=== PATIENT | female | born 1990 | race Caucasian/White ===

== ENCOUNTER → 2019-02-27 10:04 | Outpatient (CLI) | payer OTHER, SELFPAY ==
--- NOTE | 2019-02-27 | DI.US.S_ITS ---
PROCEDURE: US OB <= 14 WEEKS FETUS INDICATIONS: SIZE AND DATES OUTSIDE/PRIOR DATING DATA: Last menstrual period (LMP): 01/05/2019. LMP-based estimated date of delivery ([place]): 10/12/2019. First dating scan (date and location): 02/27/2019 at . Estimated date of delivery ([place]) from first dating scan: 10/21/2019. TECHNIQUE: Real-time scanning was performed of the fetus and maternal pelvic organs, with image documentation. COMPARISON: None. FINDINGS: Embryo: There is a single living IUP with the estimated gestational age of 6 weeks 2 days based on the crown-rump length. cardiac activity is present with heart rate 104 bpm. No perigestational bleed. Measurement variability in dating: +/- 4 weeks by LMP, +/- 7 days by mean sac diameter (use before 6 weeks gestation if crown-rump length not able to be measured), +/- 5 days by crown-rump length (up to 8 weeks 6 days gestation), +/- 7 days by crown-rump length (up to 13 weeks 6 days gestation). Maternal organs: Ovaries not visualized. Limited images through the kidneys demonstrate no hydronephrosis. IMPRESSION: 1. A single living intrauterine gestation with an estimated gestational age of 6 weeks 2 days corresponding to ultrasound ALY 10/21/2019. Dictated by: Lucia Adler M.D. on 02/27/2019 at 13:54 Approved by: Lucia Adler M.D. on 02/27/2019 at 13:58
== END ==
PROVIDERS: PCP Family Medicine; Visit Provider Family Medicine
DX: Z34.91 Encounter for supervision of normal pregnancy, unspecified, first trimester (principal); Z3A.01 Less than 8 weeks gestation of pregnancy
CPT/HCPCS: 76801

== ENCOUNTER 2019-03-09 15:06 | Emergency (ER) | payer OTHER, SELFPAY ==
[2019-03-09 15:22] VITALS: BP 124/90; PULSE 122; RESP 16; TEMP 37.4; O2SAT 99
--- NOTE | 2019-03-09 16:13 | DI.US.S_ITS ---
PROCEDURE: US OB <= 14 WEEKS FETUS INDICATIONS: BLEEDING, PAIN, AT 7 WKS OUTSIDE/PRIOR DATING DATA: Last menstrual period (LMP): 01/07/19. LMP-based estimated date of delivery ([place]): 10/12/19. First dating scan (date and location): 02/27/19. Estimated date of delivery ([place]) from first dating scan: 10/21/19. TECHNIQUE: Real-time scanning was performed of the fetus and maternal pelvic organs, with image documentation. Endovaginal scanning was also performed to better visualize the fetus and maternal ovaries. COMPARISON: [facility], , OB <= 14 WEEKS FETUS, 02/27/2019, 10:22. FINDINGS: Embryo: A single intrauterine gestation is identified measuring approximately 6 weeks and 4 days based off crown-rump length of approximately 7 mm. Previous imaging dated 02/27/19 demonstrated a single intrauterine gestation measuring approximately 6 weeks and 2 days at that time with a visible heartbeat. On today's evaluation, no visible heart tones or cardiac activity identified. Maternal organs: Ovaries are not well-visualized. Limited images through the kidneys demonstrate no hydronephrosis. IMPRESSION: Intrauterine demise with retained products of conception. Findings discussed with Dr. Hudson of the emergency department staff at 1740 hrs. Dictated by: Giovanny Irving M.D. on 03/09/2019 at 17:32 Approved by: Giovanny Irving M.D. on 03/09/2019 at 17:43
--- NOTE | 2019-03-09 17:26 | PC.NURSE ---
8 weeks , onset of vaginal bleeding last night , changed pad twice. denies any discomfort. denies other sxs.
[2019-03-09 17:27] VITALS: BP 111/72; PULSE 81; RESP 16; O2SAT 98
--- NOTE | 2019-03-09 17:27 | PC.NURSE ---
spouse at bs. pt bernarda.
--- NOTE | 2019-03-09 18:58 | ED.PREGNANCY ---
HPI - General Chief complaint: OB/Uterine Contractions Stated complaint: AND BLEEDING Time Seen by Provider: 03/09/19 16:13 Source: patient and family Mode of arrival: ambulatory Limitations: no limitations History of Present Illness HPI Narrative: 28-year-old female at 7 weeks presents at the request of her primary care provider for evaluation of pelvic cramping and bleeding for the past day or 2. She had a normal ultrasound about 10 days ago which showed intrauterine at 6 weeks and 2 days. She had a significant amount of blood work drawn this morning it was sent for lab for stat interpretation. She has bleeding barely more than a. But some pelvic cramping. She is not dizzy nor weak or lightheaded. She denies any chest pain or shortness of breath. MD Complaint: vaginal bleeding Onset (ago): day(s) Pain Consistency: intermittent Location: abdomen Severity: mild Quality: Aching Radiation: pelvis Relieving factors: rest Exacerbating factors: movement Associated symptoms: denies other symptoms Vaginal bleeding: light Patient : Yes OB History - Current : no complications OB History - Previous Pregnancies: no complications care: followed by OB and previous ultrasound confirms IUP Related Data Home Medications Medication Instructions Recorded Confirmed PNV,calcium 76-kpeo-fnqle acid 1 tab PO DAILY 03/09/19 03/09/19 [ Vitamin Plus Low Iron] levothyroxine 75 mcg PO DAILY 03/09/19 Allergies Allergy/AdvReac Type Severity Reaction Status Date / Time No Known Drug Allergies Allergy Verified 03/09/19 15:26 Review of Systems Constitutional Denies chills, Denies fever(s), Denies lethargy and Denies weakness Eyes Denies change in vision, Denies eye discharge, Denies irritation and Denies loss of vision ENT Ears, Nose, Mouth, and Throat: Denies change in voice, Denies neck pain and Denies sore throat Cardiovascular Denies chest pain, Denies irregular heart rhythm, Denies lightheadedness, Denies palpitations, Denies dyspnea, Denies dyspnea on exertion and Denies orthopnea Respiratory Denies cough, Denies dyspnea, Denies dyspnea on exertion and Denies wheezing Gastrointestinal Gastrointestinal: Denies abdominal pain, Denies change in bowel habits, Denies diarrhea, Denies nausea and Denies vomiting Genitourinary Reports abnormal vaginal bleeding, Denies hematuria, Denies flank pain, Denies urinary incontinence and Denies urinary urgency Musculoskeletal Denies neck pain Integumentary/Breasts Denies pruritus, Denies erythema, Denies rash and Denies wounds Neurologic Denies confusion, Denies loss of vision and Denies weakness Psychiatric Denies anxiety, Denies confusion, Denies depression, Denies homicidal ideation and Denies suicidal ideation Endocrine Denies palpitations Hematologic/Lymphatic Denies easy bruising Allergic/Immunologic Denies wheezing PMFSH - Past Medical History Medical history: Reports no medical history Surgical history: Reports non-contributory 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 Normocephalic. EYES: Pupils equal round and reactive. Extraocular motions intact. ENT: Nose without bleeding, purulent drainage or septal hematoma. NECK: Trachea midline. No JVD or lymphadenopathy. Supple, nontender, no meningeal signs. CARDIOVASCULAR: Regular rate and rhythm without murmurs, gallops, or rubs. RESPIRATORY: Clear to auscultation. Breath sounds equal bilaterally. No wheezes, rales, or rhonchi. GASTROINTESTINAL: Abdomen soft, mild tenderness, nondistended. No hepato-splenomegaly, or palpable masses. No guarding. EXTREMITIES: No clubbing, cyanosis, or edema. No joint tenderness, effusion, or edema noted. BACK: Nontender without deformity or crepitance. No flank tenderness. NEURO: AOx3. SKIN: No rash or erythema. Initial Vital Signs Initial Vital Signs: Vital Signs Temperature 99.3 F 03/09/19 15:22 Pulse Rate 122 H 03/09/19 15:22 Respiratory Rate 16 03/09/19 15:22 Blood Pressure 124/90 03/09/19 15:22 Pulse Oximetry 99 03/09/19 15:22 Course Orders Ordered: ED Orders 03/09/19 16:13 US OB <= 14 weeks fetus Stat Vital Signs - 8 hr 03/09/19 15:22 03/09/19 17:27 Temperature 99.3 F Pulse Rate 122 H 81 Respiratory Rate 16 16 Blood Pressure 124/90 Blood Pressure [Left Arm] 111/72 Pulse Oximetry 99 98 MDM - OB/Uterine Contractions Imaging Data US - abdomen: Radiologist's impression: Chart Viewer Diagnostics DATE TYPE STATUS AUTHOR Cesar 03/09/19 16:13 Giovanny Irving 02/27/19 00:00 German Adler Susan Prescott 28, 1990 DEP ER, ED.LOC - Main ED: R06 53.07kg OB/Uterine Contractions Search Chart No Data to Display ONSET Today 18:18 Liz Godoy 28 F 1990 [place] [address] Ultrasound Report Signed Patient: Liz GodoyMR#: [id number] : 1990Acct:[id number] Age/Sex: 28 / FDate of Service: 03/09/19 Loc: ED Accession Number: [id number] Procedure: US OB <= 14 weeks fetus Ordering Provider: Crescencio Hudson D.O. PROCEDURE: OB <= 14 WEEKS FETUS INDICATIONS: BLEEDING, PAIN, AT 7 WKS OUTSIDE/PRIOR DATING DATA: Last menstrual period (LMP): 01/07/19. LMP-based estimated date of delivery ([place]): 10/12/19. First dating scan (date and location): 02/27/19. Estimated date of delivery ([place]) from first dating scan: 10/21/19. TECHNIQUE: Real-time scanning was performed of the fetus and maternal pelvic organs, with image documentation. Endovaginal scanning was also performed to better visualize the fetus and maternal ovaries. COMPARISON: [facility], OB <= 14 WEEKS FETUS, 02/27/2019, 10:22. FINDINGS: Embryo: A single intrauterine gestation is identified measuring approximately 6 weeks and 4 days based off crown-rump length of approximately 7 mm. Previous imaging dated 02/27/19 demonstrated a single intrauterine gestation measuring approximately 6 weeks and 2 days at that time with a visible heartbeat. On today's evaluation, no visible heart tones or cardiac activity identified. Maternal organs: Ovaries are not well-visualized. Limited images through the kidneys demonstrate no hydronephrosis. IMPRESSION: Intrauterine demise with retained products of conception. Findings discussed with Dr. Hudson of the emergency department staff at 1740 hrs. Dictated by: Giovanny Irving M.D. on 03/09/2019 at 17:32 Approved by: Giovanny Irving M.D. on 03/09/2019 at 17:43 Discharge Plan Departure Patient Disposition: Home Clinical Impression: Threatened miscarriage Discharge Date/Time: 03/09/19 18:20 Interventions: ED Discharge Assessment Last Done: 03/09/19 18:18 Instructions: DI for Threatened Activity Restrictions/Additional Instructions: *You have been diagnosed with [threatened miscarriage] *What to do: *Follow up with your primary care provider tomorrow as planned *Return to ER if you should have any new, worsening or concerning symptoms Prescriptions: No Action levothyroxine 75 mcg tablet 75 mcg PO DAILY RF: 0 Vitamin Plus Low Iron 27 mg iron- 1 mg tablet 1 tab PO DAILY RF: 0 Referrals: Staci Rodriguez MD [Primary Care Provider] -
--- NOTE | 2019-03-09 19:06 | ED_ITS ---
HPI - General Chief complaint: OB/Uterine Contractions Stated complaint: AND BLEEDING Time Seen by Provider: 03/09/19 16:13 Source: patient and family Mode of arrival: ambulatory Limitations: no limitations History of Present Illness HPI Narrative: 28-year-old female at 7 weeks presents at the request of her primary care provider for evaluation of pelvic cramping and bleeding for the past day or 2. She had a normal ultrasound about 10 days ago which showed intrauterine at 6 weeks and 2 days. She had a significant amount of blood work drawn this morning it was sent for lab for stat interpretation. She has bleeding barely more than a. But some pelvic cramping. She is not dizzy nor weak or lightheaded. She denies any chest pain or shortness of breath. MD Complaint: vaginal bleeding Onset (ago): day(s) Pain Consistency: intermittent Location: abdomen Severity: mild Quality: Aching Radiation: pelvis Relieving factors: rest Exacerbating factors: movement Associated symptoms: denies other symptoms Vaginal bleeding: light Patient : Yes OB History - Current : no complications OB History - Previous Pregnancies: no complications care: followed by OB and previous ultrasound confirms IUP Related Data Home Medications Medication Instructions Recorded Confirmed PNV,calcium 00-lpbh-apiym acid 1 tab PO DAILY 03/09/19 03/09/19 [ Vitamin Plus Low Iron] levothyroxine 75 mcg PO DAILY 03/09/19 Allergies Allergy/AdvReac Type Severity Reaction Status Date / Time No Known Drug Allergies Allergy Verified 03/09/19 15:26 Review of Systems Constitutional Denies chills, Denies fever(s), Denies lethargy and Denies weakness Eyes Denies change in vision, Denies eye discharge, Denies irritation and Denies loss of vision ENT Ears, Nose, Mouth, and Throat: Denies change in voice, Denies neck pain and Denies sore throat Cardiovascular Denies chest pain, Denies irregular heart rhythm, Denies lightheadedness, Denies palpitations, Denies dyspnea, Denies dyspnea on exertion and Denies orthopnea Respiratory Denies cough, Denies dyspnea, Denies dyspnea on exertion and Denies wheezing Gastrointestinal Gastrointestinal: Denies abdominal pain, Denies change in bowel habits, Denies diarrhea, Denies nausea and Denies vomiting Genitourinary Reports abnormal vaginal bleeding, Denies hematuria, Denies flank pain, Denies urinary incontinence and Denies urinary urgency Musculoskeletal Denies neck pain Integumentary/Breasts Denies pruritus, Denies erythema, Denies rash and Denies wounds Neurologic Denies confusion, Denies loss of vision and Denies weakness Psychiatric Denies anxiety, Denies confusion, Denies depression, Denies homicidal ideation and Denies suicidal ideation Endocrine Denies palpitations Hematologic/Lymphatic Denies easy bruising Allergic/Immunologic Denies wheezing PMFSH - Past Medical History Medical history: Reports no medical history Surgical history: Reports non-contributory 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 Normocephalic. EYES: Pupils equal round and reactive. Extraocular motions intact. ENT: Nose without bleeding, purulent drainage or septal hematoma. NECK: Trachea midline. No JVD or lymphadenopathy. Supple, nontender, no meningeal signs. CARDIOVASCULAR: Regular rate and rhythm without murmurs, gallops, or rubs. RESPIRATORY: Clear to auscultation. Breath sounds equal bilaterally. No wheezes, rales, or rhonchi. GASTROINTESTINAL: Abdomen soft, mild tenderness, nondistended. No hepato- splenomegaly, or palpable masses. No guarding. EXTREMITIES: No clubbing, cyanosis, or edema. No joint tenderness, effusion, or edema noted. BACK: Nontender without deformity or crepitance. No flank tenderness. NEURO: AOx3. SKIN: No rash or erythema. Initial Vital Signs Initial Vital Signs: Vital Signs Temperature 99.3 F 03/09/19 15:22 Pulse Rate 122 H 03/09/19 15:22 Respiratory Rate 16 03/09/19 15:22 Blood Pressure 124/90 03/09/19 15:22 Pulse Oximetry 99 03/09/19 15:22 Course Orders Ordered: ED Orders 03/09/19 16:13 US OB <= 14 weeks fetus Stat Vital Signs - 8 hr 03/09/19 15:22 03/09/19 17:27 Temperature 99.3 F Pulse Rate 122 H 81 Respiratory Rate 16 16 Blood Pressure 124/90 Blood Pressure [Left Arm] 111/72 Pulse Oximetry 99 98 MDM - OB/Uterine Contractions Imaging Data US - abdomen: Radiologist's impression: Chart Viewer Diagnostics DATE TYPE STATUS AUTHOR Cesar 03/09/19 16:13 Giovanny Irving 02/27/19 00:00 German Adler Susan Prescott 30, 1990 DEP ER, ED.LOC - Main ED: R06 53.07kg OB/Uterine Contractions Search Chart No Data to Display ONSET Today 18:18 Liz Godoy 28 F 1990 [place] [address] Ultrasound Report Signed Patient: Liz GodoyMR#: [id number] : 1990Acct:[id number] Age/Sex: 28 / FDate of Service: 03/09/19 Loc: ED Accession Number: [id number] Procedure: US OB <= 14 weeks fetus Ordering Provider: Crescencio Hudson D.O. PROCEDURE: OB <= 14 WEEKS FETUS INDICATIONS: BLEEDING, PAIN, AT 7 WKS OUTSIDE/PRIOR DATING DATA: Last menstrual period (LMP): 01/07/19. LMP-based estimated date of delivery ([place]): 10/12/19. First dating scan (date and location): 02/27/19. Estimated date of delivery ([place]) from first dating scan: 10/21/19. TECHNIQUE: Real-time scanning was performed of the fetus and maternal pelvic organs, with image documentation. Endovaginal scanning was also performed to better visualize the fetus and maternal ovaries. COMPARISON: [facility], OB <= 14 WEEKS FETUS, 02/27/2019, 10:22. FINDINGS: Embryo: A single intrauterine gestation is identified measuring approximately 6 weeks and 4 days based off crown-rump length of approximately 7 mm. Previous imaging dated 02/27/19 demonstrated a single intrauterine gestation measuring approximately 6 weeks and 2 days at that time with a visible heartbeat. On today's evaluation, no visible heart tones or cardiac activity identified. Maternal organs: Ovaries are not well-visualized. Limited images through the kidneys demonstrate no hydronephrosis. IMPRESSION: Intrauterine demise with retained products of conception. Findings discussed with Dr. Hudson of the emergency department staff at 1740 hrs. Dictated by: Giovanny Irving M.D. on 03/09/2019 at 17:32 Approved by: Giovanny Irving M.D. on 03/09/2019 at 17:43 Discharge Plan Departure Patient Disposition: Home Clinical Impression: Threatened miscarriage Discharge Date/Time: 03/09/19 18:20 Interventions: ED Discharge Assessment Last Done: 03/09/19 18:18 Instructions: DI for Threatened Activity Restrictions/Additional Instructions: *You have been diagnosed with [threatened miscarriage] *What to do: *Follow up with your primary care provider tomorrow as planned *Return to ER if you should have any new, worsening or concerning symptoms Prescriptions: No Action levothyroxine 75 mcg tablet 75 mcg PO DAILY RF: 0 Vitamin Plus Low Iron 27 mg iron- 1 mg tablet 1 tab PO DAILY RF: 0 Referrals: Staci Rodriguez MD [Primary Care Provider] -
== END 2019-03-09 18:20 | disposition home or self-care (01) ==
PROVIDERS: Emergency Provider Emergency Medicine; PCP Family Medicine
DX: O20.0 Threatened abortion (principal); Z3A.01 Less than 8 weeks gestation of pregnancy; R35.0 Frequency of micturition
CPT/HCPCS: 76801; 76817; 84702; 99282; 99283

== ENCOUNTER → 2019-03-09 15:13 | Outpatient (ROUT) | payer OTHER, SELFPAY ==
[2019-03-09 16:05] LABS: HCG Quantitative /Beta subunit 17322 mIU/mL
== END ==
PROVIDERS: PCP Family Medicine; Visit Provider Family Medicine
DX: Z34.00 Encounter for supervision of normal first pregnancy, unspecified trimester (principal); Z32.01 Encounter for pregnancy test, result positive; R35.0 Frequency of micturition
CPT/HCPCS: 84702

== ENCOUNTER → 2019-03-10 11:39 | Outpatient (CLI) | payer OTHER, SELFPAY | PROVIDERS: PCP Family Medicine; Visit Provider Family Medicine | DX: O46.91 Antepartum hemorrhage, unspecified, first trimester (principal) | CPT/HCPCS: 36415; 86850; 86900; 86901 ==

== ENCOUNTER → 2019-03-11 12:26 | Outpatient (CLI) | payer OTHER, SELFPAY ==
[2019-03-11 12:55] LABS: Add Manual Diff / Slide Review NO; Basophils Absolute Auto 0 /uL (0-100); Basophils Percent Auto 1.1 % (0-2); Eosinophils Absolute Auto 100 /uL (0-450); Eosinophils Percent Auto 1.2 % (2-4); Hematocrit 38.7 % (36-46); Hemoglobin 12.9 g/dL (12.0-16.0); Lymphocytes Absolute Auto 800 /uL (1100-4500); Lymphocytes Percent Auto 16.8 % (25-40); Mean Corpuscular HGB Conc 33.4 % (30-36); Mean Corpuscular Hemoglobin 30.3 PG (26-34); Mean Corpuscular Volume 90.5 fL (80-100); Monocytes Absolute Auto 300 /uL (0-900); Monocytes Percent Auto 7.2 % (3-14); Neutrophils Absolute Auto 3300 /uL (1500-7000); Neutrophils Percent Auto 73.7 % (50-75); Platelet Count 224 X10^3/uL (150-400); Red Blood Cell Count 4.27 X10^6/uL (4.0-5.2); Red Cell Distribution Width 12.8 % (11.6-14.8); White Blood Cell Count 4.5 X10^3/uL (4.5-11.0)
[2019-03-11 13:46] LABS: HCG Quantitative /Beta subunit 15220 mIU/mL
== END ==
PROVIDERS: PCP Family Medicine; Visit Provider Family Medicine
DX: O46.91 Antepartum hemorrhage, unspecified, first trimester (principal)
CPT/HCPCS: 36415; 84702; 85025

== ENCOUNTER 2019-03-15 03:13 | Observation (INO) | payer OTHER, SELFPAY ==
[2019-03-15] VITALS (16 sets, daily range): BP systolic 94–140; BP diastolic 60–92; PULSE 70–120; RESP 16–20; TEMP 36.5–37.7; O2SAT 98–100; BMI 20.1
--- NOTE | 2019-03-15 | PATH_ITS ---
[facility] Accession Number: [id number] . 01 Material submitted: . product of conception - PRODUCTS OF CONCEPTION . 02 Diagnosis: Designated Products of Conception, Removal: Fragments of blood and fibrin. No tissue identified. V/03/18/2019 . 02 Electronically signed: . Concepcion Berg MD, Pathologist NPI- [id number] . 01 Gross description: . Received fresh labeled with the patient's name and designated on the requisition as products of conception are two pieces of red-brown clotted blood, measuring 2.4 x 1.1 x 0.8 cm and 4.3 x 4.2 x 1.2 cm. No placental tissue or parts are identified. Fire Investigation Lieutenant sections are submitted in three cassettes. ([id number]) /[facility] . 02 Pathologist provided ICD-10: O02.1 . 02 CPT . 894111 Performed at: 01 [facility] [address] [facility], [place], [place] [id number] MD Colin Berry MD Phone: [phone] Performed at: 02 [facility] [address] [place], [place] [id number] MD Concepcion Berg MD Phone: [phone]
--- NOTE | 2019-03-15 03:17 | DI.US.S_ITS ---
PROCEDURE: US OB <= 14 WEEKS FETUS INDICATIONS: KNOWN DEMISE; BLEEDING OUTSIDE/PRIOR DATING DATA: Last menstrual period (LMP): 01/05/2019. LMP-based estimated date of delivery ([place]): 10/12/2019. First dating scan (date and location): 02/27/2019 at . Estimated date of delivery ([place]) from first dating scan: 10/21/2019. TECHNIQUE: Real-time scanning was performed of the fetus and maternal pelvic organs, with image documentation. Endovaginal scanning was also performed to better visualize the fetus and maternal ovaries. COMPARISON: [facility], OB <= 14 WEEKS FETUS, 02/27/2019, 10:22. [facility], OB <= 14 WEEKS FETUS, 03/09/2019, 17:00. FINDINGS: Embryo: There is a gestational sac seen, which is now located within the lower uterine segment. A pole is seen, with a crown-rump length of 6 mm, corresponding to an estimated gestational age of 6 weeks 3 days. No cardiac activity can be seen. Measurement variability in dating: +/- 4 weeks by LMP, +/- 7 days by mean sac diameter (use before 6 weeks gestation if crown-rump length not able to be measured), +/- 5 days by crown-rump length (up to 8 weeks 6 days gestation), +/- 7 days by crown-rump length (up to 13 weeks 6 days gestation). Maternal organs: No significant abnormality is seen. IMPRESSION: demise, with spontaneous miscarriage in process. Note: No significant discrepancy from the preliminary report. Dictated by: Rosas Carrasco M.D. on 03/15/2019 at 7:11 Approved by: Rosas Carrasco M.D. on 03/15/2019 at 7:13
--- NOTE | 2019-03-15 03:30 | PC.NURSE ---
Patient with recent diagnosis last week of threatened miscarriage. Presents this evening with painful cramping and heavier bleeding than in previous days.
[2019-03-15 03:34] LABS: Add Manual Diff / Slide Review NO; Basophils Absolute Auto 0 /uL (0-100); Basophils Percent Auto 0.6 % (0-2); Eosinophils Absolute Auto 100 /uL (0-450); Eosinophils Percent Auto 1.3 % (2-4); Hematocrit 39.7 % (36-46); Lymphocytes Absolute Auto 1000 /uL (1100-4500); Lymphocytes Percent Auto 12.4 % (25-40); Mean Corpuscular HGB Conc 32.8 % (30-36); Mean Corpuscular Hemoglobin 29.8 PG (26-34); Mean Corpuscular Volume 90.7 fL (80-100); Monocytes Absolute Auto 500 /uL (0-900); Neutrophils Absolute Auto 6500 /uL (1500-7000); Neutrophils Percent Auto 79.7 % (50-75); Platelet Count 225 X10^3/uL (150-400); Red Blood Cell Count 4.37 X10^6/uL (4.0-5.2); Red Cell Distribution Width 12.8 % (11.6-14.8); White Blood Cell Count 8.1 X10^3/uL (4.5-11.0)
--- NOTE | 2019-03-15 03:34 | ED.PREGNANCY ---
HPI - General Chief complaint: Urogenital-Female Stated complaint: Possible miscarriage Time Seen by Provider: 03/15/19 03:14 Source: patient and family Mode of arrival: ambulatory Limitations: no limitations History of Present Illness HPI Narrative: 28-year-old female nonsmoker as a at 7 and half weeks with a known intrauterine demise. She was seen by myself few days ago with some cramping and spotting and ultrasound demonstrated intrauterine demise. She was seen by her primary care provider then following day and they elected to wait the weekend and have a repeat ultrasound on Saturday to decide whether not D&C was indicated. This evening at about 10:00 p.m. the patient's cramping increase significantly as did her bleeding. She has passed multiple clots at home and for the majority of time was not using a pad as she was just sitting on the toilet. She does think that she had passed some tissue. She is not dizzy nor weak or lightheaded. She completely saturated a pad in the 20 minutes it took her to get here. Her last food and drink was at about 6:00 p.m. last night MD Complaint: abdominal pain, vaginal bleeding and contractions Onset (ago): hour(s) Pain Consistency: constant Location: pelvis Severity: moderate Quality: Aching Radiation: pelvis Relieving factors: none Exacerbating factors: none Vaginal bleeding: heavy and clots OB History - Current : other care: followed by OB and previous ultrasound confirms IUP Related Data Home Medications Medication Instructions Recorded Confirmed PNV,calcium 96-vdnd-fhlud acid 1 tab PO DAILY 03/09/19 03/09/19 [ Vitamin Plus Low Iron] levothyroxine 75 mcg PO DAILY 03/09/19 Allergies Allergy/AdvReac Type Severity Reaction Status Date / Time No Known Drug Allergies Allergy Verified 03/15/19 03:41 Review of Systems Constitutional Denies chills, Denies fever(s), Denies lethargy and Denies weakness Eyes Denies change in vision, Denies eye discharge, Denies irritation and Denies loss of vision ENT Ears, Nose, Mouth, and Throat: Denies change in voice, Denies neck pain and Denies sore throat Cardiovascular Denies chest pain, Denies irregular heart rhythm, Denies lightheadedness, Denies palpitations, Denies dyspnea, Denies dyspnea on exertion and Denies orthopnea Respiratory Denies cough, Denies dyspnea, Denies dyspnea on exertion and Denies wheezing Gastrointestinal Gastrointestinal: Denies abdominal pain, Denies change in bowel habits, Denies diarrhea, Denies nausea and Denies vomiting Genitourinary Reports abnormal vaginal bleeding, Denies hematuria, Denies flank pain, Denies urinary incontinence and Denies urinary urgency Musculoskeletal Denies neck pain Integumentary/Breasts Denies pruritus, Denies erythema, Denies rash and Denies wounds Neurologic Denies confusion, Denies loss of vision and Denies weakness Psychiatric Denies anxiety, Denies confusion, Denies depression, Denies homicidal ideation and Denies suicidal ideation Endocrine Denies palpitations Hematologic/Lymphatic Denies easy bruising Allergic/Immunologic Denies wheezing PMFSH - Past Medical History Medical history: Reports thyroid disease Surgical history: Reports non-contributory Psychiatric history: Reports no psych history Family history: Reports no significant family history Exam Narrative Exam Narrative: GENERAL: 28-year-old female appears stated age, bit anxious and visibly upset well-developed patient, in mild distress. HEAD: Atraumatic. Normocephalic. No temporal or scalp tenderness. EYES: Pupils equal round and reactive. Extraocular motions intact. No scleral icterus. No injection or drainage. ENT: Throat without erythema, tonsillar hypertrophy or exudate. Uvula midline. Airway patent. NECK: Trachea midline. No JVD or lymphadenopathy. CARDIOVASCULAR: Regular rate and rhythm without murmurs, gallops, or rubs. RESPIRATORY: Clear to auscultation. Breath sounds equal bilaterally. No wheezes, rales, or rhonchi. GASTROINTESTINAL: Abdomen soft, non-tender, nondistended. PELVIC: fresh blood visible externally. Large amount of bright red blood with clot and possibly tissue in vaginal canal. Non pulsatile. 8 granados swabs used. Large clot with possible tissue very easily removed, no forceful tugging. No pain reported. Sent to pathology. Moderate continued dark bleeding via closed os. EXTREMITIES: No clubbing, cyanosis, or edema. No joint tenderness, effusion, or edema noted. BACK: Nontender without deformity or crepitance. No flank tenderness. NEURO: AOx3. SKIN: No rash or erythema. Initial Vital Signs Initial Vital Signs: Vital Signs Temperature 99.3 F 03/15/19 03:14 Pulse Rate 95 H 03/15/19 03:14 Respiratory Rate 20 03/15/19 03:14 Blood Pressure 121/71 03/15/19 03:14 Pulse Oximetry 100 03/15/19 03:14 Course Orders Ordered: ED Orders 03/15/19 03:17 US OB <= 14 weeks fetus Stat 03/15/19 03:25 Basic Metabolic Panel Stat Complete Blood Count AUTO DIFF Stat HCG Quantitative Stat Type and Screen Stat Consultations Consultation #1: call to Dr. Carmichael, she suggests I call Dr. Scott (education reporter for Dr. Rodriguez) as she traditionally does not provide coverage for the group will admit to Dr. Scott and he will consult with Dr. Rodriguez shortly Vital Signs - 8 hr 03/15/19 03:14 03/15/19 04:17 Temperature 99.3 F Pulse Rate 95 H 95 H Respiratory Rate 20 16 Blood Pressure 121/71 Blood Pressure [Left Arm] 117/67 Pulse Oximetry 100 100 MDM - OB/Uterine Contractions Lab Data Result diagrams: 03/15/19 03:25 03/15/19 03:25 Lab Results 03/15/19 03/15/19 03/15/19 Range/Units 03:25 03:25 03:25 WBC 8.1 (4.5-11.0) X10^3/uL RBC 4.37 (4.0-5.2) X10^6/uL Hgb 13.0 (12.0-16.0) g/dL Hct 39.7 (36-46) % MCV 90.7 (80-100) fL MCH 29.8 (26-34) PG MCHC 32.8 (30-36) % RDW 12.8 (11.6-14.8) % Plt Count 225 (150-400) X10^3/uL Neut % (Auto) 79.7 H (50-75) % Lymph % (Auto) 12.4 L (25-40) % [place] % (Auto) 6.0 (3-14) % Eos % (Auto) 1.3 L (2-4) % Baso % (Auto) 0.6 (0-2) % Neut # (Auto) 6500 (0055-0756) /uL Lymph # (Auto) 1000 L (7274-9308) /uL [place] # (Auto) 500 (0-900) /uL Eos # (Auto) 100 (0-450) /uL Baso # (Auto) 0 (0-100) /uL Sodium 139 (137-145) mmol/L Potassium 3.9 (3.4-5.1) mmol/L Chloride 105 (98-107) mmol/L Carbon Dioxide 25 (22-32) mmol/L BUN 11 (7-17) mg/dL Creatinine 0.60 (0.52-1.04) mg/dL Estimated GFR > 60.0 (>60) mL/min BUN/Creatinine Ratio 18.3 (6-22) Glucose 110 H (70-100) mg/dL Calcium 9.4 (8.4-10.2) mg/dL HCG, Quant 91121 mIU/mL Blood Type A Positive Antibody Screen Negative MDM Narrative Medical decision making narrative: heavy bleeding, up to 1 pad per 20 minutes, cramping. H/H stable, hemodynamics stable. US notes retained products. Patient will need a D/C later today and she and understand and are in complete agreement with the plan Discharge Plan Departure Prescriptions: No Action levothyroxine 75 mcg tablet 75 mcg PO DAILY RF: 0 Vitamin Plus Low Iron 27 mg iron- 1 mg tablet 1 tab PO DAILY RF: 0
--- NOTE | 2019-03-15 03:37 | ED_ITS ---
HPI - General Chief complaint: Urogenital-Female Stated complaint: Possible miscarriage Time Seen by Provider: 03/15/19 03:14 Source: patient and family Mode of arrival: ambulatory Limitations: no limitations History of Present Illness HPI Narrative: 28-year-old female nonsmoker as a at 7 and half weeks with a known intrauterine demise. She was seen by myself few days ago with some cramping and spotting and ultrasound demonstrated intrauterine demise. She was seen by her primary care provider then following day and they elected to wait the weekend and have a repeat ultrasound on Saturday to decide whether not D&C was indicated. This evening at about 10:00 p.m. the patient's cramping increase significantly as did her bleeding. She has passed multiple clots at home and for the majority of time was not using a pad as she was just sitting on the toilet. She does think that she had passed some tissue. She is not dizzy nor weak or lightheaded. She completely saturated a pad in the 20 minutes it took her to get here. Her last food and drink was at about 6:00 p.m. last night MD Complaint: abdominal pain, vaginal bleeding and contractions Onset (ago): hour(s) Pain Consistency: constant Location: pelvis Severity: moderate Quality: Aching Radiation: pelvis Relieving factors: none Exacerbating factors: none Vaginal bleeding: heavy and clots OB History - Current : other care: followed by OB and previous ultrasound confirms IUP Related Data Home Medications Medication Instructions Recorded Confirmed PNV,calcium 82-kvxa-xwnhu acid 1 tab PO DAILY 03/09/19 03/09/19 [ Vitamin Plus Low Iron] levothyroxine 75 mcg PO DAILY 03/09/19 Allergies Allergy/AdvReac Type Severity Reaction Status Date / Time No Known Drug Allergies Allergy Verified 03/15/19 03:41 Review of Systems Constitutional Denies chills, Denies fever(s), Denies lethargy and Denies weakness Eyes Denies change in vision, Denies eye discharge, Denies irritation and Denies loss of vision ENT Ears, Nose, Mouth, and Throat: Denies change in voice, Denies neck pain and Denies sore throat Cardiovascular Denies chest pain, Denies irregular heart rhythm, Denies lightheadedness, Denies palpitations, Denies dyspnea, Denies dyspnea on exertion and Denies orthopnea Respiratory Denies cough, Denies dyspnea, Denies dyspnea on exertion and Denies wheezing Gastrointestinal Gastrointestinal: Denies abdominal pain, Denies change in bowel habits, Denies diarrhea, Denies nausea and Denies vomiting Genitourinary Reports abnormal vaginal bleeding, Denies hematuria, Denies flank pain, Denies urinary incontinence and Denies urinary urgency Musculoskeletal Denies neck pain Integumentary/Breasts Denies pruritus, Denies erythema, Denies rash and Denies wounds Neurologic Denies confusion, Denies loss of vision and Denies weakness Psychiatric Denies anxiety, Denies confusion, Denies depression, Denies homicidal ideation and Denies suicidal ideation Endocrine Denies palpitations Hematologic/Lymphatic Denies easy bruising Allergic/Immunologic Denies wheezing PMFSH - Past Medical History Medical history: Reports thyroid disease Surgical history: Reports non-contributory Psychiatric history: Reports no psych history Family history: Reports no significant family history Exam Narrative Exam Narrative: GENERAL: 28-year-old female appears stated age, bit anxious and visibly upset well-developed patient, in mild distress. HEAD: Atraumatic. Normocephalic. No temporal or scalp tenderness. EYES: Pupils equal round and reactive. Extraocular motions intact. No scleral icterus. No injection or drainage. ENT: Throat without erythema, tonsillar hypertrophy or exudate. Uvula midline. Airway patent. NECK: Trachea midline. No JVD or lymphadenopathy. CARDIOVASCULAR: Regular rate and rhythm without murmurs, gallops, or rubs. RESPIRATORY: Clear to auscultation. Breath sounds equal bilaterally. No wheezes, rales, or rhonchi. GASTROINTESTINAL: Abdomen soft, non-tender, nondistended. PELVIC: fresh blood visible externally. Large amount of bright red blood with clot and possibly tissue in vaginal canal. Non pulsatile. 8 granados swabs used. Large clot with possible tissue very easily removed, no forceful tugging. No pain reported. Sent to pathology. Moderate continued dark bleeding via closed os. EXTREMITIES: No clubbing, cyanosis, or edema. No joint tenderness, effusion, or edema noted. BACK: Nontender without deformity or crepitance. No flank tenderness. NEURO: AOx3. SKIN: No rash or erythema. Initial Vital Signs Initial Vital Signs: Vital Signs Temperature 99.3 F 03/15/19 03:14 Pulse Rate 95 H 03/15/19 03:14 Respiratory Rate 20 03/15/19 03:14 Blood Pressure 121/71 03/15/19 03:14 Pulse Oximetry 100 03/15/19 03:14 Course Orders Ordered: ED Orders 03/15/19 03:17 US OB <= 14 weeks fetus Stat 03/15/19 03:25 Basic Metabolic Panel Stat Complete Blood Count AUTO DIFF Stat HCG Quantitative Stat Type and Screen Stat Consultations Consultation #1: call to Dr. Carmichael, she suggests I call Dr. Scott (water filtration technician for Dr. Rodriguez) as she traditionally does not provide coverage for the group will admit to Dr. Scott and he will consult with Dr. Rodriguez shortly Vital Signs - 8 hr 03/15/19 03:14 03/15/19 04:17 Temperature 99.3 F Pulse Rate 95 H 95 H Respiratory Rate 20 16 Blood Pressure 121/71 Blood Pressure [Left Arm] 117/67 Pulse Oximetry 100 100 MDM - OB/Uterine Contractions Lab Data Result diagrams: 03/15/19 03:25 03/15/19 03:25 Lab Results 03/15/19 03/15/19 03/15/19 Range/Units 03:25 03:25 03:25 WBC 8.1 (4.5-11.0) X10^3/uL RBC 4.37 (4.0-5.2) X10^6/uL Hgb 13.0 (12.0-16.0) g/dL Hct 39.7 (36-46) % MCV 90.7 (80-100) fL MCH 29.8 (26-34) PG MCHC 32.8 (30-36) % RDW 12.8 (11.6-14.8) % Plt Count 225 (150-400) X10^3/uL Neut % (Auto) 79.7 H (50-75) % Lymph % (Auto) 12.4 L (25-40) % [place] % (Auto) 6.0 (3-14) % Eos % (Auto) 1.3 L (2-4) % Baso % (Auto) 0.6 (0-2) % Neut # (Auto) 6500 (7573-1518) /uL Lymph # (Auto) 1000 L (5070-6609) /uL [place] # (Auto) 500 (0-900) /uL Eos # (Auto) 100 (0-450) /uL Baso # (Auto) 0 (0-100) /uL Sodium 139 (137-145) mmol/L Potassium 3.9 (3.4-5.1) mmol/L Chloride 105 (98-107) mmol/L Carbon Dioxide 25 (22-32) mmol/L BUN 11 (7-17) mg/dL Creatinine 0.60 (0.52-1.04) mg/dL Estimated GFR > 60.0 (>60) mL/min BUN/Creatinine Ratio 18.3 (6-22) Glucose 110 H (70-100) mg/dL Calcium 9.4 (8.4-10.2) mg/dL HCG, Quant 30575 mIU/mL Blood Type A Positive Antibody Screen Negative MDM Narrative Medical decision making narrative: heavy bleeding, up to 1 pad per 20 minutes, cramping. H/H stable, hemodynamics stable. US notes retained products. Patient will need a D/C later today and she and understand and are in complete agreement with the plan Discharge Plan Departure Prescriptions: No Action levothyroxine 75 mcg tablet 75 mcg PO DAILY RF: 0 Vitamin Plus Low Iron 27 mg iron- 1 mg tablet 1 tab PO DAILY RF: 0
[2019-03-15 03:43] LABS: BUN Creatinine Ratio 18.3 (6-22); Blood Urea Nitrogen 11 mg/dL (7-17); Calcium 9.4 mg/dL (8.4-10.2); Carbon Dioxide 25 mmol/L (22-32); Chloride 105 mmol/L (98-107); Estimated Glomerular Filt Rate > 60.0 mL/min (>60); Glucose 110 mg/dL (70-100); HEMOLYSIS 20 (0-50); Potassium 3.9 mmol/L (3.4-5.1); Sodium 139 mmol/L (137-145)
[2019-03-15 04:00] LABS: HCG Quantitative /Beta subunit 10008 mIU/mL
--- NOTE | 2019-03-15 04:24 | PC.NURSE ---
assisted Dr. Hudson with pelvic exam to look for POC. Patient tolerated procedure well. Spouse and this specification writer present for exam. Specimen obtained for lab, U/S ordered.
[2019-03-15] MEDS: KETOROLAC 60 MG/2 ML VIAL 15 MG IV (04:42)
--- NOTE | 2019-03-15 06:01 | PC.NURSE ---
Patient transferred from center to room [address] Scott orders that was given to the center nurse Niraj RN. Patient arrived via wheelchair and self transfer to bed. In no acute distress.
[2019-03-15] MEDS: SODIUM CHLORIDE 0.9% 1,000 ML 125 ML IV (06:46)
[2019-03-15 07:33] LABS: Hematocrit 34.9 % (36-46)
--- NOTE | 2019-03-15 08:13 | PC.NURSE ---
Addendum entered by Swapna Hamilton R.N. 03/15/19 13:16: SURG - pacu arrived, pt up to br, voided, spouse at bedside and accompanying to surgery, valuables, jewelry given to spouse. Original Note: AM NOTE - alert, sitting upright bed, spouse at side, tearful when discussing events initially, scant drainage peripad now, occassional abd cramping discomfort, relieved by earlier toradol in ER, ra 98%, denies nausea, + bt, npo status verified and explained to pt.
--- NOTE | 2019-03-15 10:10 | PM.HP.1 ---
History of Present Illness Date Patient Seen: 03/15/19 Time Patient Seen: 09:16 Chief complaint: Possible miscarriage Narrative: Patient HPI narrative. A 28-year-old female healthy nonsmoker with the early at about 7 and half weeks with and known intrauterine demise over the last week or so some cramping. Last evening cramping and bleeding became much more dramatic with heavy clots and a dramatic increase in pain she felt like she might have passed some small amount of tissue but at 3:00 a.m. in the morning with ultrasound still had retained products that were not able to be removed by forceps in the ER. Continued to have cramping and pain bleeding has slowed down however after Toradol. Patient denies fever. No chills. Heavy vaginal bleeding with large clots possibility of a very small amount of tissue but again at 3 still retained products lots of cramping pain dramatically improved with the Toradol. Patient History Social History household members: spouse Smoking Status: Never smoker alcohol intake: former Family & Social History Social History: household members spouse Prior Living Arrangements House Safety & Behavioral: Feels Safe in Current Yes Environment Been Physically Hurt or No Threatened By a Person Tobacco & Substance use: Smoking Status Never smoker alcohol intake former alcohol intake frequency a few times a month Substance Use Type does not use Meds Home Medications Medication Instructions Recorded Confirmed Type PNV,calcium 80-djzv-bkvtp acid 1 tab PO DAILY 03/09/19 03/15/19 History [ Vitamin Plus Low Iron] levothyroxine 75 mcg PO DAILY 03/09/19 03/15/19 History cholecalciferol (vitamin D3) 1,000 unit PO DAILY 03/15/19 03/15/19 History [Vitamin D3] valacyclovir 500 mg PO DAILY 03/15/19 03/15/19 History Allergies Allergy/AdvReac Type Severity Reaction Status Date / Time No Known Drug Allergies Allergy Verified 03/15/19 03:41 Review of Systems Review of Systems Patient without headache or neurologic change Vision normal Respiratory function within normal limits without shortness of breath cough pain No chest pain palpitations dyspnea with exertion Abdominal discomfort low in the pelvic area ultrasound shows no abnormality other than retained products That confirmed demise with a retained intrauterine products on ultrasound Significant bleeding vaginally secondary to that No neurologic change headache vision change No significant dependent edema Exam Vital Signs (past 8 hours): - 03/15/19 03:14 03/15/19 04:17 03/15/19 06:00 Temperature 99.3 F 99.9 F H Pulse Rate 95 H 95 H 78 Respiratory Rate 20 16 18 Blood Pressure 121/71 117/72 Blood Pressure [Left Arm] 117/67 Pulse Oximetry 100 100 99 03/15/19 07:00 03/15/19 08:42 Temperature 98.6 F Pulse Rate 73 Respiratory Rate 17 Blood Pressure 108/70 Blood Pressure [Left Arm] Pulse Oximetry 98 98 Oxygen Delivery Method Room Air Oxygen Flow Rate 0 Narrative Exam Narrative: Patient little anxious flu anxious but fairly comfortable in bed alert non pale PERRLA EOMs intact Neck without nodes mass Cardiovascular shows regular rate and rhythm with good blood pressure no murmurs no edema Respiratory clear to auscultation equal breath sounds Abdomen soft nontender no hepatosplenomegaly Pelvic per ER shows fresh blood visible with clotting Extremities without edema or swelling Neuro alert orient x3 sensation and motor intact neck is No rash Objective Labs Result Diagrams: 03/15/19 07:10 03/15/19 03:25 Labs: Laboratory Results - last 24 hr 03/15/19 03/15/19 03/15/19 03:25 03:25 03:25 WBC 8.1 RBC 4.37 Hgb 13.0 Hct 39.7 MCV 90.7 MCH 29.8 MCHC 32.8 RDW 12.8 Plt Count 225 Neut % (Auto) 79.7 H Lymph % (Auto) 12.4 L [place] % (Auto) 6.0 Eos % (Auto) 1.3 L Baso % (Auto) 0.6 Neut # (Auto) 6500 Lymph # (Auto) 1000 L [place] # (Auto) 500 Eos # (Auto) 100 Baso # (Auto) 0 Sodium 139 Potassium 3.9 Chloride 105 Carbon Dioxide 25 BUN 11 Creatinine 0.60 Estimated GFR > 60.0 BUN/Creatinine Ratio 18.3 Glucose 110 H Calcium 9.4 HCG, Quant 99231 Blood Type A Positive Antibody Screen Negative 03/15/19 07:10 WBC RBC Hgb 12.0 Hct 34.9 L MCV MCH MCHC RDW Plt Count Neut % (Auto) Lymph % (Auto) [place] % (Auto) Eos % (Auto) Baso % (Auto) Neut # (Auto) Lymph # (Auto) [place] # (Auto) Eos # (Auto) Baso # (Auto) Sodium Potassium Chloride Carbon Dioxide BUN Creatinine Estimated GFR BUN/Creatinine Ratio Glucose Calcium HCG, Quant Blood Type Antibody Screen Assessment & Plan Assessment & Plan narrative: Assessment 1. Acute spontaneous demise. This was known as of last week and felt that she might pass that on her own was stable otherwise. However last night cramping and bleeding became concerning and they presented and still has retained products. I think it D&C would be the best and have discussed this with Dr. Carmichael who will come and evaluate patient. Will continue with Toradol at this point schedule IV fluids and keep her NPO patient quite stable in terms blood counts and vital signs at this point Assessment 2. Hypothyroidism patient has had her thyroid for this today's dose. No symptoms or concerns about hypothyroidism he actively Assessment 3. Rh positive so no complication with that Assessment 4. Very fit healthy young woman. Time Spent With Patient Time with patient: 25 - 35 minutes Quality VTE Deep Vein Thrombosis/Pulmonary Embolism Present on Admission: No
--- NOTE | 2019-03-15 13:18 | P.HP_ITS ---
History of Present Illness Date Patient Seen: 03/15/19 Time Patient Seen: 13:16 Chief complaint: Possible miscarriage Narrative: Patient is a 28-year-old 1 para 0 at 7 weeks gestation with an incomplete miscarriage Patient presented to the emergency department last week and had an ultrasound which revealed a viable intrauterine . She presented last night with abdominal pain and heavy vaginal bleeding. The ultrasound shows an intrauterine at 6+3 weeks gestation with no heart motion. Patient History Medical History (Updated 03/15/19 @ 13:18 by Edna Carmichael MD) Hypothyroidism (Acute) Social History household members: spouse Smoking Status: Never smoker alcohol intake: former Family & Social History Social History: household members spouse Prior Living Arrangements House Safety & Behavioral: Feels Safe in Current Yes Environment Been Physically Hurt or No Threatened By a Person Tobacco & Substance use: Smoking Status Never smoker alcohol intake former alcohol intake frequency a few times a month Substance Use Type does not use Meds Home Medications Medication Instructions Recorded Confirmed Type PNV,calcium 12-vpqi-lroio acid 1 tab PO DAILY 03/09/19 03/15/19 History [ Vitamin Plus Low Iron] levothyroxine 75 mcg PO DAILY 03/09/19 03/15/19 History cholecalciferol (vitamin D3) 1,000 unit PO DAILY 03/15/19 03/15/19 History [Vitamin D3] valacyclovir 500 mg PO DAILY 03/15/19 03/15/19 History Allergies Allergy/AdvReac Type Severity Reaction Status Date / Time No Known Drug Allergies Allergy Verified 03/15/19 03:41 Exam Vital Signs (past 8 hours): - 03/15/19 06:00 03/15/19 07:00 03/15/19 08:42 Temperature 99.9 F H 98.6 F Pulse Rate 78 73 Respiratory Rate 18 17 Blood Pressure 117/72 108/70 Pulse Oximetry 99 98 98 03/15/19 12:00 Temperature 98.8 F Pulse Rate 75 Respiratory Rate 17 Blood Pressure 140/65 Pulse Oximetry 100 Oxygen Delivery Method Room Air Oxygen Flow Rate 0 Narrative Exam Narrative: Generally: Patient is sitting up in bed, no acute distress Lungs: Clear to auscultation bilaterally Cardiovascular: Regular rate and rhythm Abdomen: Soft and flat. No guarding or rebound tenderness. Pelvic exam: Deferred Objective Labs Result Diagrams: 03/15/19 07:10 03/15/19 03:25 Labs: Laboratory Results - last 24 hr 03/15/19 03/15/19 03/15/19 03:25 03:25 03:25 WBC 8.1 RBC 4.37 Hgb 13.0 Hct 39.7 MCV 90.7 MCH 29.8 MCHC 32.8 RDW 12.8 Plt Count 225 Neut % (Auto) 79.7 H Lymph % (Auto) 12.4 L [place] % (Auto) 6.0 Eos % (Auto) 1.3 L Baso % (Auto) 0.6 Neut # (Auto) 6500 Lymph # (Auto) 1000 L [place] # (Auto) 500 Eos # (Auto) 100 Baso # (Auto) 0 Sodium 139 Potassium 3.9 Chloride 105 Carbon Dioxide 25 BUN 11 Creatinine 0.60 Estimated GFR > 60.0 BUN/Creatinine Ratio 18.3 Glucose 110 H Calcium 9.4 HCG, Quant 54253 Blood Type A Positive Antibody Screen Negative 03/15/19 07:10 WBC RBC Hgb 12.0 Hct 34.9 L MCV MCH MCHC RDW Plt Count Neut % (Auto) Lymph % (Auto) [place] % (Auto) Eos % (Auto) Baso % (Auto) Neut # (Auto) Lymph # (Auto) [place] # (Auto) Eos # (Auto) Baso # (Auto) Sodium Potassium Chloride Carbon Dioxide BUN Creatinine Estimated GFR BUN/Creatinine Ratio Glucose Calcium HCG, Quant Blood Type Antibody Screen Assessment & Plan (1) Incomplete : Current visit: Yes Status: Acute Assessment & Plan narrative: Assessment: 28-year-old 1 para 0 with a 6 week 3 day demise Ultrasound shows products of conception still in the uterus Plan: Suction D&C The risks, benefits, and alternatives to the procedure were explained to the patient. The risks including bleeding, infection, and uterine perforation. She understands these risks and agrees to proceed. A full par Q was held and consent form was signed. Time Spent With Patient Time with patient: 15-24 minutes Quality VTE Deep Vein Thrombosis/Pulmonary Embolism Present on Admission: No
[2019-03-15] MEDS: LACTATED RINGERS 1,000 ML 42 ML IV (13:20)
--- NOTE | 2019-03-15 13:21 | PM.PREOP ---
Pre-operative Note Interval Note History & Physical reviewed/Exam performed by Physician: Yes Changes to H&P: No ASA Class (for procedural sedation): I
--- NOTE | 2019-03-15 13:47 | SUR.OPER ---
Lithotomy on padded OR bed, head on pillow, arms secured on padded arm boards at <90 degrees abduction. Legs secured in padded yellow fins stirrups.
--- NOTE | 2019-03-15 14:50 | PM.GYNOP.1 ---
Operative Date/Time/Diagnoses Date of procedure: 03/15/19 Time of procedure: 14:50 Pre-op diagnosis: Incomplete AB Post-op diagnosis: same Procedure: Procedures Operation Date: 03/15/19 13:45 Actual Procedures Side Surgeon p Dilation and Curettage Edna Carmichael MD Indications: Incomplete AB Surgeon: Edna Carmichael Anesthesia Type: General (LMA) Operative Notes Findings: Eight week size anteverted uterus Large amount of products of conception Closure Type: not applicable Specimen(s): uterine contents (POC) Applied: catheter Estimated blood loss (mL): 100 Blood products transfused: none Procedure in detail: After informed consent was obtained, the patient was taken to the operating room where she was placed in the dorsal supine position. After adequate LMA general anesthesia was achieved, she was placed in the dorsal lithotomy position, and prepped and draped in the usual sterile fashion. A time-out was performed. A bivalve speculum was placed into the vagina and the anterior lip of the cervix was grasped with a single-tooth tenaculum. Cervical os was sequentially dilated until the # 7 curved plastic curette could pass easily into the endometrial cavity. Several passes with suction revealed a large amount of tissue and old blood. The curette was removed. Gentle sharp curettage was performed yielding a moderate amount of tissue. Several more passes with suction revealed tissue on the 1st pass and blood only on the 2nd and 3rd pass. The instruments were removed from the uterus. The single-tooth tenaculum was removed from the anterior lip of the cervix. The bivalve speculum was removed from the vagina. Sponge, lap, and instrument counts were correct x2. The patient tolerated the procedure well, and was taken to PACU in stable condition. Complications: none Post-operative Condition: stable Disposition: PACU Plan for aftercare: Home after recovery
--- NOTE | 2019-03-15 15:29 | CM.DANOTE ---
DCP Brief Assessment Patient is a 28 year old female who was admitted today on 03/15/19 for Possible Miscarriage. Pt has [employer] for insurance and her PCP is Dr. Staci Rodriguez. EMR was reviewed. Per MD, consult with Dr. Carmichael to determine if D&C procedure needed. Pt is with demise determined at 7 weeks. Per RN, pt tearful with supportive spouse bedside with fair amount of bleeding at admission. Dr. Carmichael completed D&C procedure and pt tolerated well with plan of d/c home today with spouse. Pt not requesting SW support at this time, SW to allow for pt and spouse to receive the support of their extended family and wait to see if any further needs arise. Plan: Patient tolerated procedure well with plan of d/c home later today via spouse POV. No SW needs at this time, please refer if indicated. MORRIS Underwood
--- NOTE | 2019-03-15 16:32 | SUR.PHASEI ---
Pt woke up emotional, lots of tears and crying, denied pain small amount bloody drainage on yola pad, no clots. Pt transported up to room 203 and left with cara and left in stable condition.
--- NOTE | 2019-03-15 16:34 | SUR.HOLD ---
Pt into holding for short time till taken to OR.
--- NOTE | 2019-03-17 10:49 | PC.NURSE ---
Received phone call from lab questioning if the products of conception sent needed chromosomal tests. Asked that Edna Carmichael be consulted as care of patient was transferred to her.
== END 2019-03-15 18:17 | disposition home or self-care (01) ==
LOC: ED 03:42 → LABOR 04:40 → AC 05:57
PROVIDERS: Obstetrics & Gynecology; Admitting Provider Family Medicine; Emergency Provider Emergency Medicine; PCP Family Medicine; Visit Provider Family Medicine
PROC: (CPT 58120; principal; 2019-03-15 13:45)
DX: O02.1 Missed abortion (principal); Z3A.08 8 weeks gestation of pregnancy; E03.9 Hypothyroidism, unspecified
CPT/HCPCS: 59812; 36415; 36591; 76801; 76817; 80048; 84702; 85014; 85018; 85025; 86850; 86900; 86901; 96361; 96374; 99282; 99284; G0378; J1100; J1885; J2250; J2405; J2704; J3010

== ENCOUNTER → 2019-07-21 09:47 | Outpatient (CLI) | payer OTHER, SELFPAY ==
[2019-03-15 06:35] VITALS: BMI 20.1
--- NOTE | 2019-07-21 | DI.US.S_ITS ---
PROCEDURE: US OB <= 14 WEEKS FETUS INDICATIONS: SIZE AND DATES OUTSIDE/PRIOR DATING DATA: Last menstrual period (LMP): 05/20/19. LMP-based estimated date of delivery ([place]): 02/24/20. First dating scan (date and location): 07/21/19. Estimated date of delivery ([place]) from first dating scan: 02/25/20. TECHNIQUE: Real-time scanning was performed of the fetus and maternal pelvic organs, with image documentation. Endovaginal scanning was also performed to better visualize the fetus and maternal ovaries. COMPARISON: None. FINDINGS: Embryo: [place]-rump length measures 21 mm corresponding to 8 weeks 5 days. Heart rate measures 160 beats per minute. 2 perigestational sac bleed sites measuring 1.8 x 0.4 x 3.1 cm and 1.9 x 1.0 x 1.0 cm Measurement variability in dating: +/- 4 weeks by LMP, +/- 7 days by mean sac diameter (use before 6 weeks gestation if crown-rump length not able to be measured), +/- 5 days by crown-rump length (up to 8 weeks 6 days gestation), +/- 7 days by crown-rump length (up to 13 weeks 6 days gestation). Maternal organs: [place]nex[place] within normal limits. Limited images through the kidneys demonstrate no hydronephrosis. IMPRESSION: 8 week 5 day tsewart IUP and there are 2 perigestational sac bleeds. Dictated by: Aden QUEVEDO Interpreted: Cyndy Kuhn MD on 07/21/2019 at 12:56 Approved by: Cyndy Kuhn M.D. on 07/21/2019 at 15:47
== END ==
PROVIDERS: PCP Family Medicine; Visit Provider Family Medicine
DX: Z34.91 Encounter for supervision of normal pregnancy, unspecified, first trimester (principal); Z3A.08 8 weeks gestation of pregnancy
CPT/HCPCS: 76801

== ENCOUNTER → 2019-08-07 11:49 | Outpatient (CLI) | payer OTHER, SELFPAY ==
[2019-03-15 06:35] VITALS: BMI 20.1
--- NOTE | 2019-08-07 | DI.US.S_ITS ---
PROCEDURE: US OB <= 14 WEEKS FETUS INDICATIONS: PERIGESTATIONAL HEMORRHAGE OUTSIDE/PRIOR DATING DATA: Last menstrual period (LMP): 05/20/19. LMP-based estimated date of delivery ([place]): 02/25/20. First dating scan (date and location): 07/21/19. Estimated date of delivery ([place]) from first dating scan: 02/25/20. TECHNIQUE: Real-time scanning was performed of the fetus and maternal pelvic organs, with image documentation. Endovaginal scanning was also performed to better visualize the fetus and maternal ovaries. COMPARISON: [facility], OB <= 14 WEEKS FETUS, 07/21/2019, 10:03. [facility], OB <= 14 WEEKS FETUS, 03/15/2019, 3:55. FINDINGS: Embryo: [place] rump length 4.9 cm correlates with a gestational age of 11 weeks 4 days. There has been appropriate interval growth. heart rate at 169 beats per minute is present. No adjacent subchorionic hemorrhage is again seen. Measurement variability in dating: +/- 4 weeks by LMP, +/- 7 days by mean sac diameter (use before 6 weeks gestation if crown-rump length not able to be measured), +/- 5 days by crown-rump length (up to 8 weeks 6 days gestation), +/- 7 days by crown-rump length (up to 13 weeks 6 days gestation). Maternal organs: Ovaries normal considering gestational status on the right, not seen on the left due to bowel gas. Limited images through the kidneys demonstrate no hydronephrosis. IMPRESSION: Resolution of a small subchorionic hemorrhage adjacent to the gestational sac, appropriate interval growth, viable intrauterine gestation. Followup anatomic survey approximately 20 weeks gestation is recommended. Dictated by: Usman Barrera M.D. on 08/07/2019 at 14:49 Approved by: Usman Barrera M.D. on 08/07/2019 at 14:51
== END ==
PROVIDERS: PCP Family Medicine; Visit Provider Family Medicine
DX: O20.8 Other hemorrhage in early pregnancy (principal); Z3A.11 11 weeks gestation of pregnancy
CPT/HCPCS: 76801

== ENCOUNTER → 2020-01-25 12:59 | Outpatient (ROUT) | payer OTHER, SELFPAY ==
[2019-03-15 06:35] VITALS: BMI 20.1
== END ==
PROVIDERS: PCP Family Medicine; Visit Provider Family Medicine
DX: Z34.00 Encounter for supervision of normal first pregnancy, unspecified trimester (principal)
CPT/HCPCS: 87081

== ENCOUNTER 2020-03-01 21:04 | Inpatient (IN) | payer OTHER, SELFPAY ==
[2019-03-15 06:35] VITALS: BMI 20.1
[2020-03-02] MEDS: LACTATED RINGERS 1,000 ML 100 ML IV ×3 (05:15→11:35)
[2020-03-02] MEDS: OXYTOCIN PREMIX 30 UNIT/500 ML PLAST..BAG IV (05:32)
[2020-03-02 06:22] LABS: Add Manual Diff / Slide Review NO; Basophils Absolute Auto 100 /uL (0-100); Basophils Percent Auto 0.5 % (0-2); Eosinophils Absolute Auto 0 /uL (0-450); Eosinophils Percent Auto 0.4 % (2-4); Hematocrit 34.1 % (36-46); Hemoglobin 11.6 g/dL (12.0-16.0); Lymphocytes Absolute Auto 1100 /uL (1100-4500); Mean Corpuscular HGB Conc 33.9 % (30-36); Mean Corpuscular Hemoglobin 31.2 PG (26-34); Mean Corpuscular Volume 92.1 fL (80-100); Monocytes Absolute Auto 800 /uL (0-900); Neutrophils Absolute Auto 8200 /uL (1500-7000); Neutrophils Percent Auto 80.1 % (50-75); Platelet Count 176 X10^3/uL (150-400); Red Blood Cell Count 3.71 X10^6/uL (4.0-5.2); Red Cell Distribution Width 13.9 % (11.6-14.8); White Blood Cell Count 10.3 X10^3/uL (4.5-11.0)
[2020-03-02] MEDS: FENT 2MCG/ML BUPIV 0.125% EPI 200 MCG/100 ML PLAST..BAG 12 MCG EPIDURAL ×2 (08:58→15:19)
--- NOTE | 2020-03-02 14:46 | PM.OBPNLAB ---
Date/Time Date Patient Seen: 03/02/20 Time Patient Seen: 14:46 Pain Control Pain control: epidural Pelvic Exam Dilation (cm): 10 Effacement (%): 100 station: 0 Amniotic membrane status: Ruptured Contractions Contractions on admission: regular Monitor mode: External Pitocin rate (mU/min): 0 Contraction frequency (min): 3 Contraction duration (min): 60 Contraction pattern: Regular Contraction phase: Contraction Contraction intensity: Strong/Firm Status status: Category l Heart Rate Baseline: 130 Monitor Accelerations: Present Monitor Decelerations: Absent Monitor Variability: Moderate Assessment and Plan Assessment: active labor Plan: continuous present management Comments: Begin to push suspect OA despite contraction pattern GBS negative A positive Covid negative
--- NOTE | 2020-03-02 17:55 | P.PCNOB_ITS ---
Labor & Delivery Delivery date: 03/02/20 Intrapartal events: None Cervical ripening method: none Induction method: none Delivery augmentation: pitocin Delivery monitor: external FHT and external uterine Route of delivery: L&D Laceration Description: Periurethral - 1st Degree and Perineal - 1st Degree Delivery repair: chromic Estimated blood loss (mL): 400 Anesthesia type: Epidural Complications: none Narrative: Identifying data: Very pleasant healthy 29-year-old at 41 weeks estimated gestational age based on an EDC of 02/24/2020 based on 1st trimester ultrasounds. Patient had an unremarkable . GBS negative, A positive, glucose tolerance test 106 EMMY the negative cell free DNA negative. Patient was brought in for induction of labor due to postdates and was having regular contractions and patient was admitted and monitored overnight. She went into labor on her own with spontaneous rupture membranes at 3:00 a.m. on day of delivery which was clear Stage I: 5 hours and 36 minutes Patient had regular non painful contractions that were present on admission. Due to this Cytotec and Cervidil were not placed. Patient continued to have contractions and had spontaneous onset of rupture membranes at 3:00 a.m. which was 14 hours prior to delivery. Clear fluid was obtained. After rupture membranes contractions started to become painful and Pitocin was started at 5:30 a.m.. Maximum Pitocin was 6 milliunits. It was turned off intermittently during stage I. Patient received an epidural at 9:30 a.m.. She was 3 cm dilated and 80% effaced at -1 station at that time. External tocometer was used throughout stage I. Patient had coupling at times but then a more regular than labor pattern with the Pitocin at 6 milliunits and was 4-5 cm dilated 90% effaced -1 to 0 station. She then just on routine exam was noted to have anterior lip at approximately 1:15 p.m.. They were then after this point having difficulty controlling her pain and she will receive boluses which was helpful for her pain. She had a lot of back labor and was used a peanut ball with frequent positional changes. She was noted to be complete at 2:36 p.m.. External heart monitor was used throughout stage I which showed a baseline in the 120s to 130s with accelerations moderate variability throughout this time and no decelerations. This was a category 1 tracing throughout this stage. Stage II lasted 1 hour and 58 minutes Patient initially had difficulty with affective pushing due to having back pain. There was some trouble with epidural pump and once this was sorted out and her pain was improved she was able to push better. We then had her push on her side and switched from left side to right side and she had more effective pushing. External tocometer was used during this stage in she had contractions every 3 5 minutes. She occasionally had coupling. Pitocin was restarted at 1 gold unit. External heart monitor was used with baseline in the 130s to 140s with moderate variability she had mild decelerations with pushing to the 120s. Occasional variables with pushing. Category 1 tracing. As baby was mom was able to let the baby's head sit on the perineum and heart rate baseline did go up to 150s. It then recovered once patient's pain was improved and her heart rate was lowered with pain control. Patient continued to push effectively and baby was in direct occiput anterior precision the head was delivered and felt for cord which was not present and anterior posterior shoulder were easily delivered baby was much larger than anticipated. Baby was placed on mom's chest and was vigorous at with Apgars of 9 at 1 minute and 9 at 5 minutes. Stage III lasted 7 minutes Normal spontaneous vaginal delivery of an intact moderately calcified placenta with a central cord insertion with a three-vessel cord. There was 400 cc of blood loss. Pitocin was run in as soon as the placenta started to come. There was a portion of the amniotic membranes that did not release except with pressure. These were removed and then there was evidence of remaining amniotic membranes protruding from the cervical os. These were removed with ring forceps. As this occurred Pitocin was running in and fundus was very firm and bleeding decreased. An in and out catheter was performed then obtaining 200-250 cc of urine. Catheter was removed at the time of pushing. There was a first- degree perineal laceration which was repaired with 3-0 chromic in a running fashion. There is a right periurethral laceration which was also repaired with 3 0 chromic. At the time this dictation both mom and baby are in stable condition Plan for aftercare: routine care watch for bleeding i/o cath after perineal repair and obtained 250 cc of urine h/h in am due to moderate bleeding
--- NOTE | 2020-03-02 18:07 | PM.OBHP.1 ---
OB HPI Date/Time Date of admission: 03/02/20 Date Patient Seen: 03/02/20 Time Patient Seen: 09:07 History of Present Condition Chief complaint: : 2 Para: 0 Estimated Date of Delivery: 02/24/20 Estimated Gestational Age (weeks): 41 Narrative: Liz Godoy is a 29 year old female Comments: Pleasant 29-year-old female is admitted for induction of labor due to postdates but she was already having uterine contractions and she spontaneously went into labor with spontaneous rupture membranes at the 3:00 a.m. on day of admission which was 14 hours prior to delivery and resulted in clear fluid. Indications Indication for induction OB: post dates History of Present care: good care Dating criteria: LMP confirmed by 1st trimester US Ultrasounds: normal mid trimester US Abnormal ultrasound findings: Patient did have evidence of uterine sycheia at her 20 week ultrasound and this was repeated and was not present and there was no other abnormalities Obstetrical complications: none Medical complications: none Narrative: Patient began her care early on and had approximately 15 visits. She gained approximately 30 lb. Her blood pressures were 96-118/56-72. She had a unremarkable . She did have cell free DNA which was negative and she had her 2nd trimester ultrasound which showed uterine synechia however repeat 20 week ultrasound it was negative and her 20 week ultrasound showed no anatomical abnormalities Preadmission Labs Blood type: A (+) positive -: Antibody screen: negative, Cystic fibrosis screen: negative, GBS status: negative, HBsAG: negative, HIV: negative, HSV 1: negative, HSV 2: negative and RPR/VDLR: negative -: Chlamydia screen: not detected and Gonorrhea screen: not detected -: Rubella: immune and Varicella: immune HCT: 30.5 HCAB: negative PAP: Normal Cell-free DNA: Normal 1 hr GTT: 106 Prior (ies) History: February 2019 patient had a 1st trimester spontaneous . She required a D&C after heavy bleeding Evaluation Evaluation Laboratory results: Laboratory Tests 03/02/20 03/02/20 03:45 03:45 WBC 10.3 RBC 3.71 L Hgb 11.6 L Hct 34.1 L MCV 92.1 MCH 31.2 MCHC 33.9 RDW 13.9 Plt Count 176 Neut % (Auto) 80.1 H Lymph % (Auto) 11.0 L Oliver % (Auto) 8.0 Eos % (Auto) 0.4 L Baso % (Auto) 0.5 Neut # (Auto) 8200 H Lymph # (Auto) 1100 Oliver # (Auto) 800 Eos # (Auto) 0 Baso # (Auto) 100 Blood Type A Positive Antibody Screen Negative [facility] Medical History Hypothyroidism (Acute) Social History household members: spouse Smoking Status: Never smoker alcohol intake: former Meds Home Medications and Allergies Home Medications Medication Instructions Recorded Confirmed Type PNV,calcium 58-dbur-nivvi acid 1 tab PO DAILY 03/09/19 03/01/20 History levothyroxine 75 mcg PO DAILY 03/09/19 03/01/20 History cholecalciferol (vitamin D3) 1,000 unit PO DAILY 03/15/19 03/01/20 History [Vitamin D3] oxycodone-acetaminophen [Percocet] 1 tab PO Q4-6H PRN #10 tab 03/15/19 03/01/20 Rx valacyclovir 500 mg PO DAILY 03/15/19 03/01/20 History Allergies Allergy/AdvReac Type Severity Reaction Status Date / Time No Known Drug Allergies Allergy Verified 03/15/19 03:41 Review of Systems Review of Systems Narrative: No change in discharge. Patient is having frequent urination and a lot of pelvic pressure. No obvious contractions. No headache. No swelling. No abdominal pain. Exam Vital Signs (past 8 hours): Afebrile vital signs are stable HEENT unremarkable Neck: Supple, no masses, no thyromegaly Chest: Clear to auscultation without wheezes rhonchi or crackles Cor: Regular rate and rhythm without a murmur Abdomen: Positive bowel sounds, soft, nontender, nondistended, estimated weight, 7 half to 8 lb, vertex, question hospital posterior but on ultrasound no evidence of os put posterior Extremities: No edema, DTRs intact Cervical exam 4 cm, 90% effaced, -1 to 0 station heart tracing category 1 strip with baseline 120s to 130s with moderate variability and accelerations and no decelerations. Uterine contractions some coupling and contractions every 3-5 minutes Objective Labs Result Diagrams: 03/02/20 03:45 Labs: Laboratory Results - last 24 hr 03/02/20 03/02/20 03:45 03:45 WBC 10.3 RBC 3.71 L Hgb 11.6 L Hct 34.1 L MCV 92.1 MCH 31.2 MCHC 33.9 RDW 13.9 Plt Count 176 Neut % (Auto) 80.1 H Lymph % (Auto) 11.0 L Oliver % (Auto) 8.0 Eos % (Auto) 0.4 L Baso % (Auto) 0.5 Neut # (Auto) 8200 H Lymph # (Auto) 1100 Oliver # (Auto) 800 Eos # (Auto) 0 Baso # (Auto) 100 Blood Type A Positive Antibody Screen Negative Assessment and Plan Assessment and Plan Assessment and Plan narrative: 29-year-old at 41 weeks estimated gestational age in active labor Plan continue epidural GBS negative A positive, rubella immune, glucose tolerance test 106 Spontaneous rupture membranes at 3:00 a.m. with clear fluid Positional changes for suspected possible os put posterior External tocometer heart monitor Increased Pitocin for regular contraction pattern Assessment 2. Hypothyroidism Plan continue outpatient thyroid medication
[2020-03-02 19:35] VITALS: TEMP 36.2
[2020-03-02] MEDS: IBUPROFEN 600 MG TABLET PO (19:35)
[2020-03-02] MEDS: ACETAMINOPHEN 325 MG TABLET 650 MG PO (21:34)
[2020-03-02] MEDS: DOCUSATE 100 MG CAPSULE PO (21:34)
[2020-03-02 21:48] VITALS: BP 100/57
[2020-03-02] MEDS: DERMOPLAST SPRAY 20% 60 ML 1 SPRAY TOP (22:39)
[2020-03-03] MEDS: IBUPROFEN 600 MG TABLET PO ×2 (02:20→15:39)
[2020-03-03 06:01] LABS: Hematocrit 29.2 % (36-46); Hemoglobin 9.9 g/dL (12.0-16.0)
[2020-03-03] MEDS: LEVOTHYROXINE 75 MCG TABLET PO (06:47)
[2020-03-03] MEDS: ACETAMINOPHEN 325 MG TABLET 650 MG PO (08:01)
[2020-03-03] MEDS: DOCUSATE 100 MG CAPSULE PO (08:01)
[2020-03-03] MEDS: PRENATAL VIT,CALC/IRON/FOLIC 1 TABLET 1 TAB PO (08:01)
--- NOTE | 2020-03-03 13:04 | PM.OBPN.1 ---
Subjective - OB Subjective Patient comments: no complaints, pain well controlled and tolerating diet baby status: doing well and nursing well feeding status: exclusively breast feeding Narrative: Patient is doing very well. Tolerating diet, no nausea vomiting. Pain controlled. Lochia less than menses. Ambulating well. Positive void, no bowel movement. is going well. Date Patient Seen: 03/03/20 Time Patient Seen: 13:05 Exam Narrative Exam Narrative: General: NAD Skin: Color unremarkable, no rash nor lesions HEENT: Neck supple with midline trachea Lungs: CTAB Heart: Normal rate and regular rhythm, S1, S2 normal, no murmurs, click, rub or gallop Abdomen: FF, U-1, soft, non-tender, +BS Extremities: No edema, no cyanosis Objective Labs Result Diagrams: 03/03/20 05:55 Labs: Laboratory Results - last 24 hr 03/03/20 05:55 Hgb 9.9 L Hct 29.2 L Assessment & Plan Plan day: 1 plan OB: routine care Comments: 1. Status post at 41 WGA 2. 3. Hypothyroidism Plan: Routine care. Continue home thyroid dose. Plan for discharge tomorrow. Time Spent With Patient Time: Total time spent is greater than 50% in coordination of care (as documented) at patient's floor/unit and/or counseling patient: Time with patient: Greater than 35 minutes
[2020-03-03] MEDS: LANOLIN OINT 7 GM 1 APPLIC TOP (17:33)
[2020-03-04] MEDS: IBUPROFEN 600 MG TABLET PO ×3 (00:40→12:08)
[2020-03-04] MEDS: LEVOTHYROXINE 75 MCG TABLET PO (06:06)
--- NOTE | 2020-03-04 08:41 | P.DS_ITS ---
Discharge Providers Provider Date of admission: 03/01/20 21:04 Discharge Date: 03/04/20 Primary care physician: Staci Rodriguez MD Consults: 03/03/20 17:52 Consult to [employer] Technician Routine Comment: Discharge provider: Staci Rodriguez MD Summary Hospital Course Date Patient Seen: 03/04/20 Time Patient Seen: 08:43 Peripartum Data Infant Delivery Method: Natural Vaginal Laceration description: Perineal - 1st Degree complications: none Status at Discharge Cognitive/behavioral status at discharge: oriented Functional status at discharge: independent ambulation Overall status at discharge: patient is progressing back to baseline Time Spent with Patient Time attestation: Total time spent providing and/or coordinating discharge ser vices:30 minutes Objective Labs Result Diagrams: 03/03/20 05:55 Exam Narrative Exam Narrative: AF, vss chest cta cor rrr abdmen benign, uterus firm and well below umbilicus ext no edema, dtr 2 plus Discharge Plan Discharge Plan Patient Disposition: Home Discharge orders & Medications Prescriptions: New docusate sodium [DOK] 100 mg Capsule 100 mg PO BID Qty: 60 RF: 0 ibuprofen 600 mg Tablet 600 mg PO Q6HR PRN (Reason: Pain, Mild (1-3)) Qty: 60 RF: 0 Continued levothyroxine 75 mcg tablet 75 mcg PO DAILY RF: 0 PNV,calcium 61-ntdj-potdq acid 27 mg iron- 1 mg tablet 1 tab PO DAILY RF: 0 valacyclovir 500 mg Tablet 500 mg PO DAILY RF: 0 cholecalciferol (vitamin D3) [Vitamin D3] 1,000 unit Capsule 1,000 unit PO DAILY RF: 0 Discontinued oxycodone-acetaminophen [Percocet] 5-325 mg tablet 1 tab PO Q4-6H PRN (Reason: pain) Qty: 10 RF: 0 Follow up/Referrals: Staci Rodriguez MD [Primary Care Provider] - Diet/Activity/Treatments Diet: Diet as Tolerated Activity: pelvic rest no heavy lifting Discharge Data Primary Care Provider: Staci Rodriguez
[2020-03-04 10:31] VITALS: BP 102/63; PULSE 94; RESP 16; TEMP 36.7
[2020-03-04] MEDS: DOCUSATE 100 MG CAPSULE PO (12:07)
[2020-03-04] MEDS: PRENATAL VIT,CALC/IRON/FOLIC 1 TABLET 1 TAB PO (12:08)
== END 2020-03-04 14:35 | disposition home or self-care (01) | DRG 807 ==
PROVIDERS: Admitting Provider Family Medicine; PCP Family Medicine; Referring Provider Family Medicine; Visit Provider Family Medicine
DX: O48.0 Post-term pregnancy (principal); Z37.0 Single live birth; O71.82 Other specified trauma to perineum and vulva; O70.0 First degree perineal laceration during delivery; Z3A.41 41 weeks gestation of pregnancy; E03.9 Hypothyroidism, unspecified
CPT/HCPCS: 01967; 36415; 59050; 85014; 85018; 85025; 86850; 86900; 86901; G0379; J2590

== ENCOUNTER → 2020-06-09 17:37 | Outpatient (CLI) | payer OTHER, SELFPAY ==
[2020-05-19 16:21] VITALS: BMI 20.1
[2020-06-09 18:36] LABS: Free T3, Triiodothyronine Free 5.32 pg/mL (2.77-5.27); Free T4, Direct Thyroxine 2.34 ng/dL (0.78-2.19)
[2020-06-09 18:37] LABS: Prolactin 221.4 ng/mL (3.0-18.6)
[2020-06-09 18:54] LABS: Thyroid Stimulating Hormone < 0.015 uIU/mL (0.47-4.68)
== END ==
PROVIDERS: Family Provider Family Medicine; PCP Family Medicine; Referring Provider Family Medicine; Visit Provider Family Medicine
DX: E03.9 Hypothyroidism, unspecified (principal)
CPT/HCPCS: 36415; 84146; 84439; 84443; 84481

== ENCOUNTER 2020-08-02 09:00 | Outpatient (RCR) | payer OTHER, SELFPAY ==
[2019-03-15 06:35] VITALS: BMI 20.1
[2020-05-19 16:21] VITALS: BMI 20.1
--- NOTE | 2020-06-19 12:59 | PT.OIE ---
Current Diagnoses Low back pain (06/14/20) Separation of muscle (nontraumatic), other site (06/14/20) Muscle weakness (generalized) (06/14/20) Past Medical History (Last Reviewed 03/02/20 @ 18:12 by Staci Rodriguez MD) Hypothyroidism (Acute) Visit Care Team Role Provider Type Staci Rodriguez MD Attending Provider Physician Family Provider Primary Care Provider Referring Provider Specialty: Family Practice Address: [address] [place] [address], [place], [place], [facility] Email: [email or web address] Physical Therapy Initial Evaluation PT-OP-A Visit Information Start: 06/14/20 08:56 Freq: Status: Active Protocol: Document 06/14/20 09:55 [facility] (Rec: 06/14/20 10:04 [facility] [id number]) Out-Patient Physical Therapy Visit Information Visit Information Visit Type Initial Evaluation Visit Start Time 09:50 Visit Stop Time 10:35 Total Visit Minutes 45 Visit Number 1 Evaluation Information Evaluation Date 06/14/20 PT-OP-B Current Condition Start: 06/14/20 08:56 Freq: Status: Active Protocol: Document 06/14/20 09:55 [facility] (Rec: 06/14/20 10:04 [facility] [id number]) Current Condition History of Current Condition Onset Date With Current Complaints weak core muscles, diastasis History of Current Condition Liz is a 29 year old female 3 months with her first baby. Her baby was 9.5 # at 41 weeks and she had a vaginal . Before she was she had hip and back pain, has a history of left sided hip pain. She points to pain in the front of her pelvis on the right. She does get some back pain when holding her baby. She will be 15 weeks tomorrow and is around 13 pounds now. She notes she did see some coning of her abdomen during . Low back pain and she has dealt with that for a long time. She mountain bikes and skis and yoga. She did cross fit for a long time too and that is when she had a lot of back pain. Treatment Goals Patient/Caregiver Goals Liz's goals include improving strength of her core muscles and prevention of further LBP PT-OP-C Subjective Start: 06/14/20 08:56 Freq: Status: Active Protocol: Document 06/14/20 12:32 [facility] (Rec: 06/19/20 12:40 [facility] [email or web address]) Patient Questionnaires Pelvic Pain and Urgency/Frequency Patient Symptom Scale Pelvic Pain Score 11 PT-OP-F Manual Assessment Start: 06/14/20 08:56 Freq: Status: Active Protocol: Document 06/14/20 12:32 [facility] (Rec: 06/19/20 12:40 [facility] [email or web address]) Manual Assessments Soft Tissue Assessment Soft Tissue Mobility Assessment Diastasis evaluation shows 1-2 finger width seperation proximal to umbilicus, 3 finger width just distal to umbilicus There is iliopsoas tightness and decreased Hip extension L> R lumbar paraspinal guarding Joint Mobility Assessment Joint Mobility Assessment hypermobility of the SI joing with + ASLR B PT-OP-J Posture/Palpation/Skin Start: 06/14/20 08:56 Freq: Status: Active Protocol: Document 06/14/20 12:32 [facility] (Rec: 06/19/20 12:40 [facility] [email or web address]) Palpation Assessment Location lumbar paraspinals Palpation Location lumbar paraspinals Palpation Findings Soft Tissue Tightness,Spasm, Muscle Guarding PT-OP-K Range of Motion Start: 06/14/20 08:56 Freq: Status: Active Protocol: Document 06/14/20 12:32 [facility] (Rec: 06/19/20 12:40 [facility] [email or web address]) Lumbar Spine Range of Motion Lumbar Spine Active Testing Position Standing Flexion 50 ROM Limitations Soft Tissue Tightness Comments Decreased active ROM of lumbar flexion Hip Goniometric Range of Motion Hip ROM Limitations Hip ROM Limitations Soft Tissue Tightness Comments Iliopsoas tightness B L>R, difficult to lay legs flat in supine, PT-OP-M Strength Start: 06/14/20 08:56 Freq: Status: Active Protocol: Document 06/14/20 12:32 [facility] (Rec: 06/19/20 12:40 [facility] [email or web address]) Trunk Strength Trunk Manual Muscle Testing Testing Position Supine Flexion 2 Poor Core Stabilization Diastasis noted of the rectus abdominus without coning noted . Decreased transverse abdominal stabilization with + ASLR test B PT-OP-Q Treatments Start: 06/14/20 08:56 Freq: Status: Active Protocol: Document 06/14/20 18:02 [facility] (Rec: 06/14/20 18:05 [facility] [id number]) Therapeutic Exercises Supine Exercises iliopsoas stretch in ruma test position Reps/Minutes hold x 1 min each side TA facilitation with marches Reps/Minutes x 10 reps TA facilitation Reps/Minutes x 5 reps Other Exercises fredo pose Other Exercise Name fredo pose Reps/Minutes hold 30 sec to 1 minute quadruped TA facilitation Reps/Minutes 10 reps x 10 second hold time ( pt to work up to 10 second hold time) quadruped cat cow Reps/Minutes x 10 reps PT-OP-T Assessment and Plan Start: 06/14/20 08:56 Freq: Status: Active Protocol: Document 06/14/20 12:40 [facility] (Rec: 06/19/20 12:44 [facility] [email or web address]) Physical Therapy Assessment Rehab Potential Rehabilitation Potential Excellent Evaluation Complexity Number of Personal Factors/Comorbidities 0 Number of Body Systems Impaired 1-2 Clinical Presentation at Evaluation Stable Impairments Impairments Activity Tolerance,Posture,ROM ,Soft Tissue Mobility,Strength Goals iliopsoas tightness Impairment iliopsoas tightness with + ruma test B Corporate Director Tal[employer] Assessment Goal (LTG) Improved flexbility of the iliopsoas to decrease strain to the lumbar spine and SI joint and improve posture. LTG Duration 8 weeks lumbar paraspinal guarding and decreased ROM Impairment Lumbar paraspinal guarding and decreased lumbar ROM Short Term Goal (STG) Liz is able to perform a standing forward bend with full lumbar spine ROM STG Duration 4 weeks Fdc Goal (LTG) Overall decreased muscle guarding and spasm of the lumbar parapsinals with full lumbar spine flexion LTG Duration 8 weeks diastasis with core weakness Impairment Core weakness with diastasis Short Term Goal (STG) Liz is able to facilitate her Transverse abdominal muscles in supine with marches without SI unlocking STG Duration 4 weeks Corporate Director Tal[employer] Assessment Goal (LTG) Liz has improved support of her inner core including pelvic floor and transverse abdominal muscles to improve support tot he abdominal wall and minimize diastasis LTG Duration 8 weeks low back pain 4/10 Impairment low back pain 4/10 [employer] Director Tal[employer] Assessment Goal (LTG) Liz report 0-1/10 back pain symptoms and is able to lift and carry her baby without pain using good body mechanics LTG Duration 8 weeks Assessment Summary Assessment Liz is a 29 year old female with diastasis recti and weakness in her core muscles following and vaginal delivery. Liz reports she did have some hip and back pain during her and had some right sided SI pain following her . She rates her LBP as 4 /10 at this time. Liz reports she did have coning of her abdominal wall in the first few months post . She does not present with coning today. With examination there is a 2 finger width seperation proximal to the umbilicus, 3 finger width seperation below the umbilicus. She presents with SI instability and a + ASLR test demonstrating unlocking of the SI joint with active SLR. Her iliopsoas is very tight B but left greater than right pulling the left innominant forward. Lumbar paraspinals are tight and guarded and she is restricted with forward bend due to this. Liz was able to facilitate her transverse abdominal muscles after education on how to facilitate on hands and knees today. She notes she only has urinary leakage with strong cough and sneeze and of primary concern today is strengthening her abdominal wall. Liz is a good candidate for PT and treatment will include transverse abdominal facilitation and strengthening , working on lumbar ROM and decreasing tightness of the parapsinals, improving hip mobility to decrease strain to the SI joint, working up to dynamic lumbar stabilization exercises. Physical Therapy Plan Frequency and Duration Frequency of Treatment 2x/Week Duration of Treatment 8 Plan of Care Start Date 06/14/20 Plan of Care End Date 08/09/20 Therapeutic Interventions Therapeutic Interventions Home Exercise Program,Manual Therapy,Neuromuscular Re- education,Patient/Caregiver Education,Self-Care/Home Management,Soft Tissue Mobilization,Therapeutic Exercises Next Visit Focus/Plan Next Note Type Treatment Note Next Visit Plan review core stabilization exercises initiated this visit and progress strengthening program, work on releasing the iliopsoas muscles
--- NOTE | 2020-06-19 13:00 | PT.OPPOC ---
Physical, Occupational & Speech Therapy At [facility] Current Diagnoses Low back pain (06/14/20) Separation of muscle (nontraumatic), other site (06/14/20) Muscle weakness (generalized) (06/14/20) Visit Care Team Role Provider Type Staci Rodriguez MD Attending Provider Physician Family Provider Primary Care Provider Referring Provider Specialty: Family Practice Address: [address] [place] [address], [facility] [place], [address] Email: [email or web address] Plan Of Care PT-OP-T Assessment and Plan Start: 06/14/20 08:56 Freq: Status: Active Protocol: Document 06/14/20 12:40 [facility] (Rec: 06/19/20 12:44 [facility] [email or web address]) Physical Therapy Assessment Rehab Potential Rehabilitation Potential Excellent Evaluation Complexity Number of Personal Factors/Comorbidities 0 Number of Body Systems Impaired 1-2 Clinical Presentation at Evaluation Stable Impairments Impairments Activity Tolerance,Posture,ROM ,Soft Tissue Mobility,Strength Goals iliopsoas tightness Impairment iliopsoas tightness with + ruma test B Chief Construction Inspector Goal (LTG) Improved flexibility of the iliopsoas to decrease strain to the lumbar spine and SI joint and improve posture. LTG Duration 8 weeks lumbar paraspinal guarding and decreased ROM Impairment Lumbar paraspinal guarding and decreased lumbar ROM Short Term Goal (STG) Liz is able to perform a standing forward bend with full lumbar spine ROM STG Duration 4 weeks Alf Goal (LTG) Overall decreased muscle guarding and spasm of the lumbar parapsinals with full lumbar spine flexion LTG Duration 8 weeks diastasis with core weakness Impairment Core weakness with diastasis Short Term Goal (STG) Liz is able to facilitate her Transverse abdominal muscles in supine with marches without SI unlocking STG Duration 4 weeks Chief Construction Inspector Goal (LTG) Liz has improved support of her inner core including pelvic floor and transverse abdominal muscles to improve support tot he abdominal wall and minimize diastasis LTG Duration 8 weeks low back pain 4/10 Impairment low back pain 4/10 Alf Goal (LTG) Liz report 0-1/10 back pain symptoms and is able to lift and carry her baby without pain using good body mechanics LTG Duration 8 weeks Assessment Summary Assessment Liz is a 29 year old female with diastasis recti and weakness in her core muscles following and vaginal delivery. Liz reports she did have some hip and back pain during her and had some right sided SI pain following her . She rates her LBP as 4 /10 at this time. Liz reports she did have coning of her abdominal wall in the first few months . She does not present with coning today. With examination there is a 2 finger width separation proximal to the umbilicus, 3 finger width separation below the umbilicus. She presents with SI instability and a + ASLR test demonstrating unlocking of the SI joint with active SLR. Her iliopsoas is very tight B but left greater than right pulling the left innominant forward. Lumbar paraspinals are tight and guarded and she is restricted with forward bend due to this. Liz was able to facilitate her transverse abdominal muscles after education on how to facilitate on hands and knees today. She notes she only has urinary leakage with strong cough and sneeze and of primary concern today is strengthening her abdominal wall. Liz is a good candidate for PT and treatment will include transverse abdominal facilitation and strengthening , working on lumbar ROM and decreasing tightness of the parapsinals, improving hip mobility to decrease strain to the SI joint, working up to dynamic lumbar stabilization exercises. Physical Therapy Plan Frequency and Duration Frequency of Treatment 2x/Week Duration of Treatment 8 Plan of Care Start Date 06/14/20 Plan of Care End Date 08/09/20 Therapeutic Interventions Therapeutic Interventions Home Exercise Program,Manual Therapy,Neuromuscular Re- education,Patient/Caregiver Education,Self-Care/Home Management,Soft Tissue Mobilization,Therapeutic Exercises Next Visit Focus/Plan Next Note Type Treatment Note Next Visit Plan review core stabilization exercises initiated this visit and progress strengthening program, work on releasing the iliopsoas muscles Plan of Care Dates Plan of Care Start Date 06/14/20 Plan of Care End Date 08/09/20 Electronically Signed by: Tari Love, PT 06/19/20 1300 Please Sign and Return: I have reviewed this Plan of Care and certify that the skilled therapy services above are required to meet the patient?s needs. Physician Signature Date Printed Name and Credentials Clinical Instructor Signature Printed Name and Credentials
--- NOTE | 2020-06-21 12:02 | PT.OTN ---
Current Diagnoses Low back pain (06/21/20) Separation of muscle (nontraumatic), other site (06/21/20) Muscle weakness (generalized) (06/21/20) Physical Therapy Treatment Note PT-OP-A Visit Information Start: 06/14/20 08:56 Freq: Status: Active Protocol: Document 06/21/20 11:51 [facility] (Rec: 06/21/20 11:52 [facility] [email or web address]) Out-Patient Physical Therapy Visit Information Visit Information Visit Type Treatment Note Visit Start Time 09:45 Visit Stop Time 10:30 Total Visit Minutes 45 Visit Number 2 PT-OP-B Current Condition Start: 06/14/20 08:56 Freq: Status: Active Protocol: Document 06/14/20 09:55 [facility] (Rec: 06/14/20 10:04 [facility] [id number]) Current Condition History of Current Condition Onset Date With Current Complaints weak core muscles, diastasis History of Current Condition Liz is a 29 year old female 3 months post with her first baby. Her baby was 9.5 # at 41 weeks and she had a vaginal . Before she was she had hip and back pain, has a history of left sided hip pain. She points to pain in the front of her pelvis on the right. SHe does get some back pain when holding her baby. She will be 15 weeks tomorrow and is around 13 pounds now. She notes she did see some coning of her abdomen during . Low back pain and she has dealt with that for a long time. She mountain bikes and skis and yoga. She did cross fit for a long time too and that is when she had a lot of back pain. Treatment Goals Patient/Caregiver Goals Liz's goals include improving strength of her core muscles and prevention of further LBP PT-OP-C Subjective Start: 06/14/20 08:56 Freq: Status: Active Protocol: Document 06/21/20 09:53 [facility] (Rec: 06/21/20 10:08 [facility] [id number]) OP-PT Subjective Patient Comments Patient Comments liz feels like she can feel where her abdominal muscle is more and is trying to engage it throughout the day PT-OP-F Manual Assessment Start: 06/14/20 08:56 Freq: Status: Active Protocol: Document 06/14/20 12:32 [facility] (Rec: 06/19/20 12:40 [facility] [email or web address]) Manual Assessments Soft Tissue Assessment Soft Tissue Mobility Assessment Diastasis evaluation shows 1-2 finger width seperation proximal to umbilicus, 3 finger width just distal to umbilicus There is iliopsoas tightness and decreased Hip extension L> R lumbar paraspinal guarding Joint Mobility Assessment Joint Mobility Assessment hypermobility of the SI joing with + ASLR B PT-OP-J Posture/Palpation/Skin Start: 06/14/20 08:56 Freq: Status: Active Protocol: Document 06/14/20 12:32 [facility] (Rec: 06/19/20 12:40 [facility] [email or web address]) Palpation Assessment Location lumbar paraspinals Palpation Location lumbar paraspinals Palpation Findings Soft Tissue Tightness,Spasm, Muscle Guarding PT-OP-K Range of Motion Start: 06/14/20 08:56 Freq: Status: Active Protocol: Document 06/14/20 12:32 [facility] (Rec: 06/19/20 12:40 [facility] [email or web address]) Lumbar Spine Range of Motion Lumbar Spine Active Testing Position Standing Flexion 50 ROM Limitations Soft Tissue Tightness Comments Decreased active ROM of lumbar flexion Hip Goniometric Range of Motion Hip ROM Limitations Hip ROM Limitations Soft Tissue Tightness Comments Iliopsoas tightness B L>R, difficult to lay legs flat in supine, PT-OP-M Strength Start: 06/14/20 08:56 Freq: Status: Active Protocol: Document 06/14/20 12:32 [facility] (Rec: 06/19/20 12:40 [facility] [email or web address]) Trunk Strength Trunk Manual Muscle Testing Testing Position Supine Flexion 2 Poor Core Stabilization Diastasis noted of the rectus abdominus without coning noted . Decreased transverse abdominal stabilization with + ASLR test B PT-OP-Q Treatments Start: 06/14/20 08:56 Freq: Status: Active Protocol: Document 06/21/20 09:53 [facility] (Rec: 06/21/20 10:08 [facility] [id number]) Therapeutic Exercises Supine Exercises bridges with ball squeeze Reps/Minutes x 10 reps supine adductor squeeze Equipment Used x 10 reps ITB stretch Supine Exercise Name ITB stretch iliopsoas stretch in ruma test position Reps/Minutes hold x 1 min each side TA facilitation with marches Reps/Minutes x 10 reps Comments needed to work on one side at a time due to low back popping Other Exercises quadruped side bends Reps/Minutes x 5 reps each side fredo pose Other Exercise Name fredo pose Reps/Minutes hold 30 sec to 1 minute Comments left side of lumbar spine paraspinals tight/guarded quadruped TA facilitation Reps/Minutes 10 reps x 10 second hold time ( pt to work up to 10 second hold time) quadruped cat cow Reps/Minutes x 10 reps Manual Therapy Treatment Manual Techniques manual iliopsoas release Type manual iliopsoas release Body Position Hooklying Comments MFR over the tissue with manual stretch MET left anterior rotated innominant Type MET left anterior rotated innominant Comments MET x 5 reps, good tolerance, left pelvis still rotated forward though following technique PT-OP-T Assessment and Plan Start: 06/14/20 08:56 Freq: Status: Active Protocol: Document 06/21/20 11:58 [facility] (Rec: 06/21/20 12:00 [facility] [email or web address]) Physical Therapy Assessment Assessment Summary Assessment left side of lumbar paraspinals and iliopsoas tight and guarded. This tends to pull the pelvis forward on the left which can make it more difficult for abdominal stabilization. Liz did have some low back popping with TA and marches today. We took it slower and had her do just one leg at a time which seemed to help. Added bridges with cues to keep both pelvic bones in a stable position Physical Therapy Plan Frequency and Duration Frequency of Treatment 2x/Week Duration of Treatment 8 Plan of Care Start Date 06/14/20 Plan of Care End Date 08/09/20 Therapeutic Interventions Therapeutic Interventions Home Exercise Program,Manual Therapy,Neuromuscular Re- education,Patient/Caregiver Education,Self-Care/Home Management,Soft Tissue Mobilization,Therapeutic Exercises Next Visit Focus/Plan Next Note Type Treatment Note Next Visit Plan review core stabilization exercises initiated this visit and progress strengthening program, continue work on releasing the iliopsoas muscles
--- NOTE | 2020-06-28 12:27 | PT.OTN ---
Current Diagnoses Low back pain (06/28/20) Separation of muscle (nontraumatic), other site (06/28/20) Muscle weakness (generalized) (06/28/20) Physical Therapy Treatment Note PT-OP-A Visit Information Start: 06/14/20 08:56 Freq: Status: Active Protocol: Document 06/28/20 12:18 [facility] (Rec: 06/28/20 12:27 [facility] [email or web address]) Out-Patient Physical Therapy Visit Information Visit Information Visit Type Treatment Note Visit Start Time 09:00 Visit Stop Time 09:45 Total Visit Minutes 45 Visit Number 3 PT-OP-B Current Condition Start: 06/14/20 08:56 Freq: Status: Active Protocol: Document 06/14/20 09:55 [facility] (Rec: 06/14/20 10:04 [facility] [id number]) Current Condition History of Current Condition Onset Date With Current Complaints weak core muscles, diastasis History of Current Condition Liz is a 29 year old female 3 months post with her first baby. Her baby was 9.5 # at 41 weeks and she had a vaginal . Before she was she had hip and back pain, has a history of left sided hip pain. She points to pain in the front of her pelvis on the right. SHe does get some back pain when holding her baby. She will be 15 weeks tomorrow and is around 13 pounds now. She notes she did see some coning of her abdomen during . Low back pain 10 and she has dealt with that for a long time. She mountain bikes and skis and yoga. She did cross fit for a long time too and that is when she had a lot of back pain. Treatment Goals Patient/Caregiver Goals Liz's goals include improving strength of her core muscles and prevention of further LBP PT-OP-C Subjective Start: 06/14/20 08:56 Freq: Status: Active Protocol: Document 06/28/20 09:03 [facility] (Rec: 06/28/20 09:06 [facility] [id number]) OP-PT Subjective Patient Comments Patient Comments feels like she is stretching and it will loosen up and then get tight again. Patient Reported Progress Same PT-OP-F Manual Assessment Start: 06/14/20 08:56 Freq: Status: Active Protocol: Document 06/14/20 12:32 [facility] (Rec: 06/19/20 12:40 [facility] [email or web address]) Manual Assessments Soft Tissue Assessment Soft Tissue Mobility Assessment Diastasis evaluation shows 1-2 finger width seperation proximal to umbilicus, 3 finger width just distal to umbilicus There is iliopsoas tightness and decreased Hip extension L> R lumbar paraspinal guarding Joint Mobility Assessment Joint Mobility Assessment hypermobility of the SI joing with + ASLR B PT-OP-J Posture/Palpation/Skin Start: 06/14/20 08:56 Freq: Status: Active Protocol: Document 06/14/20 12:32 [facility] (Rec: 06/19/20 12:40 [facility] [email or web address]) Palpation Assessment Location lumbar paraspinals Palpation Location lumbar paraspinals Palpation Findings Soft Tissue Tightness,Spasm, Muscle Guarding PT-OP-K Range of Motion Start: 06/14/20 08:56 Freq: Status: Active Protocol: Document 06/14/20 12:32 [facility] (Rec: 06/19/20 12:40 [facility] [email or web address]) Lumbar Spine Range of Motion Lumbar Spine Active Testing Position Standing Flexion 50 ROM Limitations Soft Tissue Tightness Comments Decreased active ROM of lumbar flexion Hip Goniometric Range of Motion Hip ROM Limitations Hip ROM Limitations Soft Tissue Tightness Comments Iliopsoas tightness B L>R, difficult to lay legs flat in supine, PT-OP-M Strength Start: 06/14/20 08:56 Freq: Status: Active Protocol: Document 06/14/20 12:32 [facility] (Rec: 06/19/20 12:40 [facility] [email or web address]) Trunk Strength Trunk Manual Muscle Testing Testing Position Supine Flexion 2 Poor Core Stabilization Diastasis noted of the rectus abdominus without coning noted . Decreased transverse abdominal stabilization with + ASLR test B PT-OP-Q Treatments Start: 06/14/20 08:56 Freq: Status: Active Protocol: Document 06/28/20 12:18 [facility] (Rec: 06/28/20 12:27 [facility] [email or web address]) Therapeutic Exercises Sidelying Exercises clam shells Reps/Minutes 3 x 10 reps Other Exercises supine 1/2 foam roll stretch Other Exercise Name 1/2 foam roll stretch Reps/Minutes 4 min TA with opp leg lifts Reps/Minutes x 10 reps TA with opp arm lifts Reps/Minutes x 10 reps quadruped thoracic rotation Reps/Minutes x 5 reps each side quadruped side bends Reps/Minutes x 5 reps each side fredo pose Other Exercise Name fredo pose Reps/Minutes hold 30 sec to 1 minute Comments left side of lumbar spine paraspinals tight/guarded quadruped TA facilitation Reps/Minutes 10 reps x 10 second hold time ( pt to work up to 10 second hold time) quadruped cat cow Reps/Minutes x 10 reps Manual Therapy Treatment Manual Techniques manual iliopsoas release Type manual iliopsoas release Body Position Sidelying Comments left side of the iliopsoas very tight and you can feel the tauntness of the muscle more in sidelying. Spent some time here just working on releasing it. PT-OP-T Assessment and Plan Start: 06/14/20 08:56 Freq: Status: Active Protocol: Document 06/28/20 12:18 [facility] (Rec: 06/28/20 12:27 [facility] [email or web address]) Physical Therapy Assessment Assessment Summary Assessment added in opp leg and arm lifts in quadruped. It was difficult for Liz to keep her pelvis level for the opp leg exercise. I also started stretching the psoas in sidelying and the left side is definatly very taunt. Liz may benefit from dry needling to release the iliopsoas Physical Therapy Plan Frequency and Duration Frequency of Treatment 2x/Week Duration of Treatment 8 Plan of Care Start Date 06/14/20 Plan of Care End Date 08/09/20 Next Visit Focus/Plan Next Note Type Treatment Note Next Visit Plan left iliopsoas release and stretching, review abdominal stabilization exercises in supine
--- NOTE | 2020-07-05 13:12 | PT.OTN ---
Current Diagnoses Low back pain (07/05/20) Separation of muscle (nontraumatic), other site (07/05/20) Muscle weakness (generalized) (07/05/20) Physical Therapy Treatment Note PT-OP-A Visit Information Start: 06/14/20 08:56 Freq: Status: Active Protocol: Document 07/05/20 09:03 [facility] (Rec: 07/05/20 09:32 [facility] [id number]) Out-Patient Physical Therapy Visit Information Visit Information Visit Type Treatment Note Visit Start Time 09:00 Visit Stop Time 09:45 Total Visit Minutes 45 Visit Number 4 PT-OP-B Current Condition Start: 06/14/20 08:56 Freq: Status: Active Protocol: Document 06/14/20 09:55 [facility] (Rec: 06/14/20 10:04 [facility] [id number]) Current Condition History of Current Condition Onset Date With Current Complaints weak core muscles, diastasis History of Current Condition Liz is a 29 year old female 3 months post with her first baby. Her baby was 9.5 # at 41 weeks and she had a vaginal . Before she was she had hip and back pain, has a history of left sided hip pain. She points to pain in the front of her pelvis on the right. SHe does get some back pain when holding her baby. She will be 15 weeks tomorrow and is around 13 pounds now. She notes she did see some coning of her abdomen during . Low back pain and she has dealt with that for a long time. She mountain bikes and skis and yoga. She did cross fit for a long time too and that is when she had a lot of back pain. Treatment Goals Patient/Caregiver Goals Liz's goals include improving strength of her core muscles and prevention of further LBP PT-OP-C Subjective Start: 06/14/20 08:56 Freq: Status: Active Protocol: Document 07/05/20 09:03 [facility] (Rec: 07/05/20 09:32 [facility] [id number]) OP-PT Subjective Patient Comments Patient Comments Feels like maybe she is using her core now. PT-OP-F Manual Assessment Start: 06/14/20 08:56 Freq: Status: Active Protocol: Document 06/14/20 12:32 [facility] (Rec: 06/19/20 12:40 [facility] [email or web address]) Manual Assessments Soft Tissue Assessment Soft Tissue Mobility Assessment Diastasis evaluation shows 1-2 finger width seperation proximal to umbilicus, 3 finger width just distal to umbilicus There is iliopsoas tightness and decreased Hip extension L> R lumbar paraspinal guarding Joint Mobility Assessment Joint Mobility Assessment hypermobility of the SI joing with + ASLR B PT-OP-J Posture/Palpation/Skin Start: 06/14/20 08:56 Freq: Status: Active Protocol: Document 06/14/20 12:32 [facility] (Rec: 06/19/20 12:40 [facility] [email or web address]) Palpation Assessment Location lumbar paraspinals Palpation Location lumbar paraspinals Palpation Findings Soft Tissue Tightness,Spasm, Muscle Guarding PT-OP-K Range of Motion Start: 06/14/20 08:56 Freq: Status: Active Protocol: Document 06/14/20 12:32 [facility] (Rec: 06/19/20 12:40 [facility] [email or web address]) Lumbar Spine Range of Motion Lumbar Spine Active Testing Position Standing Flexion 50 ROM Limitations Soft Tissue Tightness Comments Decreased active ROM of lumbar flexion Hip Goniometric Range of Motion Hip ROM Limitations Hip ROM Limitations Soft Tissue Tightness Comments Iliopsoas tightness B L>R, difficult to lay legs flat in supine, PT-OP-M Strength Start: 06/14/20 08:56 Freq: Status: Active Protocol: Document 06/14/20 12:32 [facility] (Rec: 06/19/20 12:40 [facility] [email or web address]) Trunk Strength Trunk Manual Muscle Testing Testing Position Supine Flexion 2 Poor Core Stabilization Diastasis noted of the rectus abdominus without coning noted . Decreased transverse abdominal stabilization with + ASLR test B PT-OP-Q Treatments Start: 06/14/20 08:56 Freq: Status: Active Protocol: Document 07/05/20 09:03 [facility] (Rec: 07/05/20 09:32 [facility] [id number]) Therapeutic Exercises Supine Exercises crunches Reps/Minutes x 10 TA level 1 b Reps/Minutes x 5 each leg bridges with ball squeeze Reps/Minutes x 10 reps TA facilitation with marches Reps/Minutes x 10 TA facilitation Reps/Minutes x2 Other Exercises TA with opp leg lifts Reps/Minutes x 10 reps TA with opp arm lifts Reps/Minutes x 10 reps quadruped thoracic rotation Reps/Minutes x 5 reps each side fredo pose Other Exercise Name fredo pose Reps/Minutes hold 30 sec to 1 minute Comments left side of lumbar spine paraspinals tight/guarded quadruped TA facilitation Reps/Minutes 10 reps x 10 second hold time ( pt to work up to 10 second hold time) quadruped cat cow Reps/Minutes x 10 reps Manual Therapy Treatment Manual Techniques manual iliopsoas release Type manual iliopsoas release Body Position Sidelying Comments left side of the iliopsoas very tight and you can feel the tauntness of the muscle more in sidelying. Spent some time here just working on releasing it. PT-OP-T Assessment and Plan Start: 06/14/20 08:56 Freq: Status: Active Protocol: Document 07/05/20 13:07 [facility] (Rec: 07/05/20 13:12 [facility] [email or web address]) Physical Therapy Assessment Assessment Summary Assessment Liz did much better today with abdominal stabilization and was able to do marches without the left side clicking . When attempting level 1 b she did still have some clicking on the left side so we worked un lifting up with the left, right, down with the right then left. I was able to add in crunches today with pelvic floor and abdominal stabilization and Liz tolerated this well without any abdominal bulging Physical Therapy Plan Frequency and Duration Frequency of Treatment 2x/Week Duration of Treatment 8 Plan of Care Start Date 06/14/20 Plan of Care End Date 08/09/20 Therapeutic Interventions Therapeutic Interventions Home Exercise Program,Manual Therapy,Neuromuscular Re- education,Patient/Caregiver Education,Self-Care/Home Management,Soft Tissue Mobilization,Therapeutic Exercises Next Visit Focus/Plan Next Note Type Treatment Note Next Visit Plan continue to progress core stabilization and move towards dynamic stabilization as pt is able to
--- NOTE | 2020-07-12 10:01 | PT.OTN ---
Current Diagnoses Low back pain (07/12/20) Separation of muscle (nontraumatic), other site (07/12/20) Muscle weakness (generalized) (07/12/20) Physical Therapy Treatment Note PT-OP-A Visit Information Start: 06/14/20 08:56 Freq: Status: Active Protocol: Document 07/12/20 08:58 [facility] (Rec: 07/12/20 08:58 [facility] [email or web address]) Out-Patient Physical Therapy Visit Information Visit Information Visit Type Treatment Note Visit Start Time 09:00 Visit Stop Time 09:45 Total Visit Minutes 45 Visit Number 5 PT-OP-B Current Condition Start: 06/14/20 08:56 Freq: Status: Active Protocol: Document 06/14/20 09:55 [facility] (Rec: 06/14/20 10:04 [facility] [id number]) Current Condition History of Current Condition Onset Date With Current Complaints weak core muscles, diastasis History of Current Condition Liz is a 29 year old female 3 months post with her first baby. Her baby was 9.5 # at 41 weeks and she had a vaginal . Before she was she had hip and back pain, has a history of left sided hip pain. She points to pain in the front of her pelvis on the right. SHe does get some back pain when holding her baby. She will be 15 weeks tomorrow and is around 13 pounds now. She notes she did see some coning of her abdomen during . Low back pain 4/ 10 and she has dealt with that for a long time. She mountain bikes and skis and yoga. She did cross fit for a long time too and that is when she had a lot of back pain. Treatment Goals Patient/Caregiver Goals Liz's goals include improving strength of her core muscles and prevention of further LBP PT-OP-C Subjective Start: 06/14/20 08:56 Freq: Status: Active Protocol: Document 07/12/20 09:53 [facility] (Rec: 07/12/20 09:54 [facility] [id number]) OP-PT Subjective Patient Comments Patient Comments Liz reports she feels like she is able to use her core more with abdominal exercises. Crunches bother her neck. Patient Reported Progress Improving PT-OP-F Manual Assessment Start: 06/14/20 08:56 Freq: Status: Active Protocol: Document 06/14/20 12:32 [facility] (Rec: 06/19/20 12:40 [facility] [email or web address]) Manual Assessments Soft Tissue Assessment Soft Tissue Mobility Assessment Diastasis evaluation shows 1-2 finger width seperation proximal to umbilicus, 3 finger width just distal to umbilicus There is iliopsoas tightness and decreased Hip extension L> R lumbar paraspinal guarding Joint Mobility Assessment Joint Mobility Assessment hypermobility of the SI joing with + ASLR B PT-OP-J Posture/Palpation/Skin Start: 06/14/20 08:56 Freq: Status: Active Protocol: Document 06/14/20 12:32 [facility] (Rec: 06/19/20 12:40 [facility] [email or web address]) Palpation Assessment Location lumbar paraspinals Palpation Location lumbar paraspinals Palpation Findings Soft Tissue Tightness,Spasm, Muscle Guarding PT-OP-K Range of Motion Start: 06/14/20 08:56 Freq: Status: Active Protocol: Document 06/14/20 12:32 [facility] (Rec: 06/19/20 12:40 [facility] [email or web address]) Lumbar Spine Range of Motion Lumbar Spine Active Testing Position Standing Flexion 50 ROM Limitations Soft Tissue Tightness Comments Decreased active ROM of lumbar flexion Hip Goniometric Range of Motion Hip ROM Limitations Hip ROM Limitations Soft Tissue Tightness Comments Iliopsoas tightness B L>R, difficult to lay legs flat in supine, PT-OP-M Strength Start: 06/14/20 08:56 Freq: Status: Active Protocol: Document 06/14/20 12:32 [facility] (Rec: 06/19/20 12:40 [facility] [email or web address]) Trunk Strength Trunk Manual Muscle Testing Testing Position Supine Flexion 2 Poor Core Stabilization Diastasis noted of the rectus abdominus without coning noted . Decreased transverse abdominal stabilization with + ASLR test B PT-OP-Q Treatments Start: 06/14/20 08:56 Freq: Status: Active Protocol: Document 07/12/20 09:54 [facility] (Rec: 07/12/20 10:01 [facility] [id number]) Therapeutic Exercises Supine Exercises TA with SLR Reps/Minutes x 10 reps TA level 1 b Reps/Minutes x 5 each leg TA facilitation with marches Reps/Minutes x 10 Sidelying Exercises clam shells Sidelying Exercise Name Clam shells Reps/Minutes x 15 reps Other Exercises pigeon pose Other Exercise Name pigeon pose Reps/Minutes 1 xm each leg x 1 min each rolling like a ball Equipment Used x 3 roll backs Reps/Minutes x 2 plank pose Other Exercise Name plank pose TA with opp leg lifts Reps/Minutes x 10 reps TA with opp arm lifts Reps/Minutes x 10 reps quadruped thoracic rotation Reps/Minutes x 5 reps each side quadruped side bends Other Exercise Name quadruped sidebends Reps/Minutes x 5 each fredo pose Other Exercise Name fredo pose Reps/Minutes hold 30 sec to 1 minute Comments left side of lumbar spine paraspinals tight/guarded quadruped TA facilitation Reps/Minutes 10 reps x 10 second hold time ( pt to work up to 10 second hold time) quadruped cat cow Reps/Minutes x 10 reps Manual Therapy Treatment Manual Techniques manual iliopsoas release Type manual iliopsoas release Body Position Sidelying Comments left side of the ilipsoas improving flexibility and not as tight as it had been. PT-OP-T Assessment and Plan Start: 06/14/20 08:56 Freq: Status: Active Protocol: Document 07/12/20 09:54 [facility] (Rec: 07/12/20 10:01 [facility] [id number]) Physical Therapy Assessment Assessment Summary Assessment Liz is tolerating more abdominal exercises, tolerated plank today with core activated. Begin working towards more upright activities with core activation Physical Therapy Plan Frequency and Duration Frequency of Treatment 2x/Week Duration of Treatment 8 Plan of Care Start Date 06/14/20 Plan of Care End Date 08/09/20 Therapeutic Interventions Therapeutic Interventions Home Exercise Program,Manual Therapy,Neuromuscular Re- education,Patient/Caregiver Education,Self-Care/Home Management,Soft Tissue Mobilization,Therapeutic Exercises Next Visit Focus/Plan Next Note Type Treatment Note Next Visit Plan begin to work on more upright stability exercises next visit , lunges, squats with core activation
--- NOTE | 2020-07-19 17:56 | PT.OTN ---
Current Diagnoses Low back pain (07/19/20) Separation of muscle (nontraumatic), other site (07/19/20) Muscle weakness (generalized) (07/19/20) Physical Therapy Treatment Note PT-OP-A Visit Information Start: 06/14/20 08:56 Freq: Status: Active Protocol: Document 07/19/20 11:15 [facility] (Rec: 07/19/20 11:16 [facility] [email or web address]) Out-Patient Physical Therapy Visit Information Visit Information Visit Type Treatment Note Visit Start Time 09:00 Visit Stop Time 09:45 Total Visit Minutes 45 Visit Number 6 Evaluation Information Evaluation Date 06/14/20 PT-OP-B Current Condition Start: 06/14/20 08:56 Freq: Status: Active Protocol: Document 06/14/20 09:55 [facility] (Rec: 06/14/20 10:04 [facility] [id number]) Current Condition History of Current Condition Onset Date With Current Complaints weak core muscles, diastasis History of Current Condition Liz is a 29 year old female 3 months post with her first baby. Her baby was 9.5 # at 41 weeks and she had a vaginal . Before she was she had hip and back pain, has a history of left sided hip pain. She points to pain in the front of her pelvis on the right. SHe does get some back pain when holding her baby. She will be 15 weeks tomorrow and is around 13 pounds now. She notes she did see some coning of her abdomen during . Low back pain 4/ 10 and she has dealt with that for a long time. She mountain bikes and skis and yoga. She did cross fit for a long time too and that is when she had a lot of back pain. Treatment Goals Patient/Caregiver Goals Liz's goals include improving strength of her core muscles and prevention of further LBP PT-OP-C Subjective Start: 06/14/20 08:56 Freq: Status: Active Protocol: Document 07/19/20 17:51 [facility] (Rec: 07/19/20 17:55 [facility] [email or web address]) OP-PT Subjective Patient Comments Patient Comments iLz reports she is feeling stronger with her core, She is still feeling tight in her hips. Patient Reported Progress Improving PT-OP-F Manual Assessment Start: 06/14/20 08:56 Freq: Status: Active Protocol: Document 06/14/20 12:32 [facility] (Rec: 06/19/20 12:40 [facility] [email or web address]) Manual Assessments Soft Tissue Assessment Soft Tissue Mobility Assessment Diastasis evaluation shows 1-2 finger width seperation proximal to umbilicus, 3 finger width just distal to umbilicus There is iliopsoas tightness and decreased Hip extension L> R lumbar paraspinal guarding Joint Mobility Assessment Joint Mobility Assessment hypermobility of the SI joing with + ASLR B PT-OP-J Posture/Palpation/Skin Start: 06/14/20 08:56 Freq: Status: Active Protocol: Document 06/14/20 12:32 [facility] (Rec: 06/19/20 12:40 [facility] [email or web address]) Palpation Assessment Location lumbar paraspinals Palpation Location lumbar paraspinals Palpation Findings Soft Tissue Tightness,Spasm, Muscle Guarding PT-OP-K Range of Motion Start: 06/14/20 08:56 Freq: Status: Active Protocol: Document 06/14/20 12:32 [facility] (Rec: 06/19/20 12:40 [facility] [email or web address]) Lumbar Spine Range of Motion Lumbar Spine Active Testing Position Standing Flexion 50 ROM Limitations Soft Tissue Tightness Comments Decreased active ROM of lumbar flexion Hip Goniometric Range of Motion Hip ROM Limitations Hip ROM Limitations Soft Tissue Tightness Comments Iliopsoas tightness B L>R, difficult to lay legs flat in supine, PT-OP-M Strength Start: 06/14/20 08:56 Freq: Status: Active Protocol: Document 06/14/20 12:32 [facility] (Rec: 06/19/20 12:40 [facility] [email or web address]) Trunk Strength Trunk Manual Muscle Testing Testing Position Supine Flexion 2 Poor Core Stabilization Diastasis noted of the rectus abdominus without coning noted . Decreased transverse abdominal stabilization with + ASLR test B PT-OP-Q Treatments Start: 06/14/20 08:56 Freq: Status: Active Protocol: Document 07/19/20 17:51 [facility] (Rec: 07/19/20 17:55 [facility] [email or web address]) Therapeutic Exercises Supine Exercises TA with SLR Reps/Minutes x 10 reps crunches Reps/Minutes x 10 TA level 1 b Reps/Minutes x 5 each leg bridges with ball squeeze Reps/Minutes x 10 reps iliopsoas stretch in ruma test position Reps/Minutes hold x 1 min each side TA facilitation with marches Reps/Minutes x 10 TA facilitation Reps/Minutes x2 Prone Exercises prone thoracic extension Prone Exercise Name prone thoracic extension Reps/Minutes x 10 Sidelying Exercises clam shells Sidelying Exercise Name Clam shells Reps/Minutes x 15 reps Standing Exercises standing squats, lunges, single leg squats Comments cued pt to engage the TA on return to stand Other Exercises pigeon pose Other Exercise Name pigeon pose Reps/Minutes 1 xm each leg x 1 min each TA with opp leg lifts Reps/Minutes x 10 reps TA with opp arm lifts Reps/Minutes x 10 reps quadruped thoracic rotation Reps/Minutes x 5 reps each side quadruped side bends Other Exercise Name quadruped sidebends Reps/Minutes x 5 each fredo pose Other Exercise Name fredo pose Reps/Minutes hold 30 sec to 1 minute Comments left side of lumbar spine paraspinals tight/guarded quadruped TA facilitation Reps/Minutes 10 reps x 10 second hold time ( pt to work up to 10 second hold time) quadruped cat cow Reps/Minutes x 10 reps Manual Therapy Treatment Manual Techniques manual iliopsoas release Type manual iliopsoas release Body Position Sidelying Comments left side of the ilipsoas improving flexibility and not as tight as it had been. PT-OP-T Assessment and Plan Start: 06/14/20 08:56 Freq: Status: Active Protocol: Document 07/19/20 17:51 [facility] (Rec: 07/19/20 17:55 [facility] [email or web address]) Physical Therapy Assessment Assessment Summary Assessment Good tolerance for standing squats and lunges. Liz is doing really well with core activation and no visable abdominal bulging is present Physical Therapy Plan Frequency and Duration Frequency of Treatment 2x/Week Duration of Treatment 8 Plan of Care Start Date 06/14/20 Plan of Care End Date 08/09/20
--- NOTE | 2020-07-26 17:13 | PT.OTN ---
Current Diagnoses Low back pain (07/26/20) Separation of muscle (nontraumatic), other site (07/26/20) Muscle weakness (generalized) (07/26/20) Physical Therapy Treatment Note PT-OP-A Visit Information Start: 06/14/20 08:56 Freq: Status: Active Protocol: Document 07/26/20 17:10 [facility] (Rec: 07/26/20 17:13 [facility] [email or web address]) Out-Patient Physical Therapy Visit Information Visit Information Visit Type Treatment Note Visit Start Time 09:00 Visit Stop Time 09:45 Total Visit Minutes 45 Visit Number 7 PT-OP-B Current Condition Start: 06/14/20 08:56 Freq: Status: Active Protocol: Document 06/14/20 09:55 [facility] (Rec: 06/14/20 10:04 [facility] [id number]) Current Condition History of Current Condition Onset Date With Current Complaints weak core muscles, diastasis History of Current Condition Liz is a 29 year old female 3 months post with her first baby. Her baby was 9.5 # at 41 weeks and she had a vaginal . Before she was she had hip and back pain, has a history of left sided hip pain. She points to pain in the front of her pelvis on the right. SHe does get some back pain when holding her baby. She will be 15 weeks tomorrow and is around 13 pounds now. She notes she did see some coning of her abdomen during . Low back pain and she has dealt with that for a long time. She mountain bikes and skis and yoga. She did cross fit for a long time too and that is when she had a lot of back pain. Treatment Goals Patient/Caregiver Goals Liz's goals include improving strength of her core muscles and prevention of further LBP PT-OP-C Subjective Start: 06/14/20 08:56 Freq: Status: Active Protocol: Document 07/26/20 17:10 [facility] (Rec: 07/26/20 17:13 [facility] [email or web address]) OP-PT Subjective Patient Comments Patient Comments Liz continues to work on her exercises at home. She is experiencing some thoracic discomfort this week PT-OP-F Manual Assessment Start: 06/14/20 08:56 Freq: Status: Active Protocol: Document 06/14/20 12:32 [facility] (Rec: 06/19/20 12:40 [facility] [email or web address]) Manual Assessments Soft Tissue Assessment Soft Tissue Mobility Assessment Diastasis evaluation shows 1-2 finger width seperation proximal to umbilicus, 3 finger width just distal to umbilicus There is iliopsoas tightness and decreased Hip extension L> R lumbar paraspinal guarding Joint Mobility Assessment Joint Mobility Assessment hypermobility of the SI joing with + ASLR B PT-OP-J Posture/Palpation/Skin Start: 06/14/20 08:56 Freq: Status: Active Protocol: Document 06/14/20 12:32 [facility] (Rec: 06/19/20 12:40 [facility] [email or web address]) Palpation Assessment Location lumbar paraspinals Palpation Location lumbar paraspinals Palpation Findings Soft Tissue Tightness,Spasm, Muscle Guarding PT-OP-K Range of Motion Start: 06/14/20 08:56 Freq: Status: Active Protocol: Document 06/14/20 12:32 [facility] (Rec: 06/19/20 12:40 [facility] [email or web address]) Lumbar Spine Range of Motion Lumbar Spine Active Testing Position Standing Flexion 50 ROM Limitations Soft Tissue Tightness Comments Decreased active ROM of lumbar flexion Hip Goniometric Range of Motion Hip ROM Limitations Hip ROM Limitations Soft Tissue Tightness Comments Iliopsoas tightness B L>R, difficult to lay legs flat in supine, PT-OP-M Strength Start: 06/14/20 08:56 Freq: Status: Active Protocol: Document 06/14/20 12:32 [facility] (Rec: 06/19/20 12:40 [facility] [email or web address]) Trunk Strength Trunk Manual Muscle Testing Testing Position Supine Flexion 2 Poor Core Stabilization Diastasis noted of the rectus abdominus without coning noted . Decreased transverse abdominal stabilization with + ASLR test B PT-OP-Q Treatments Start: 06/14/20 08:56 Freq: Status: Active Protocol: Document 07/26/20 17:10 [facility] (Rec: 07/26/20 17:13 [facility] [email or web address]) Therapeutic Exercises Supine Exercises TA with SLR Reps/Minutes x 10 reps crunches Reps/Minutes x 10 TA level 1 b Reps/Minutes x 5 each leg bridges with ball squeeze Reps/Minutes x 10 reps supine adductor squeeze Equipment Used x 10 reps ITB stretch Supine Exercise Name ITB stretch iliopsoas stretch in ruma test position Reps/Minutes hold x 1 min each side TA facilitation with marches Reps/Minutes x 10 TA facilitation Reps/Minutes x2 Prone Exercises prone thoracic extension Prone Exercise Name prone thoracic extension Reps/Minutes x 10 Sidelying Exercises clam shells Sidelying Exercise Name Clam shells Reps/Minutes x 15 reps Other Exercises pigeon pose Other Exercise Name pigeon pose Reps/Minutes 1 xm each leg x 1 min each rolling like a ball Equipment Used x 3 roll backs Reps/Minutes x 2 plank pose Other Exercise Name plank pose supine 1/2 foam roll stretch Other Exercise Name 1/2 foam roll stretch Reps/Minutes 4 min TA with opp leg lifts Reps/Minutes x 10 reps TA with opp arm lifts Reps/Minutes x 10 reps quadruped thoracic rotation Reps/Minutes x 5 reps each side quadruped side bends Other Exercise Name quadruped sidebends Reps/Minutes x 5 each fredo pose Other Exercise Name fredo pose Reps/Minutes hold 30 sec to 1 minute Comments left side of lumbar spine paraspinals tight/guarded quadruped TA facilitation Reps/Minutes 10 reps x 10 second hold time ( pt to work up to 10 second hold time) quadruped cat cow Reps/Minutes x 10 reps Manual Therapy Treatment Manual Techniques manual iliopsoas release Type manual iliopsoas release Body Position Sidelying Comments left side of the ilipsoas improving flexibility and not as tight as it had been. PT-OP-T Assessment and Plan Start: 06/14/20 08:56 Freq: Status: Active Protocol: Document 07/26/20 17:10 [facility] (Rec: 07/26/20 17:13 [facility] [email or web address]) Physical Therapy Assessment Assessment Summary Assessment improving stability, I added back in the foam roll today both vertically and horizontally as Gómez's thoracic spine was tight. She tolerated this well Physical Therapy Plan Next Visit Focus/Plan Next Note Type Treatment Note Next Visit Plan This next visit will be Liz' s last scheduled visit. Review all established exercises
--- NOTE | 2020-08-02 12:37 | PT.OTN ---
Current Diagnoses Low back pain (08/02/20) Separation of muscle (nontraumatic), other site (08/02/20) Muscle weakness (generalized) (08/02/20) Physical Therapy Treatment Note PT-OP-A Visit Information Start: 06/14/20 08:56 Freq: Status: Active Protocol: Document 08/02/20 09:12 [facility] (Rec: 08/02/20 09:13 [facility] [id number]) Out-Patient Physical Therapy Visit Information Visit Information Visit Type Treatment Note Visit Start Time 09:00 Visit Stop Time 09:45 Total Visit Minutes 45 Visit Number 8 PT-OP-B Current Condition Start: 06/14/20 08:56 Freq: Status: Active Protocol: Document 06/14/20 09:55 [facility] (Rec: 06/14/20 10:04 [facility] [id number]) Current Condition History of Current Condition Onset Date With Current Complaints weak core muscles, diastasis History of Current Condition Liz is a 29 year old female 3 months post with her first baby. Her baby was 9.5 # at 41 weeks and she had a vaginal . Before she was she had hip and back pain, has a history of left sided hip pain. She points to pain in the front of her pelvis on the right. SHe does get some back pain when holding her baby. She will be 15 weeks tomorrow and is around 13 pounds now. She notes she did see some coning of her abdomen during . Low back pain / 10 and she has dealt with that for a long time. She mountain bikes and skis and yoga. She did cross fit for a long time too and that is when she had a lot of back pain. Treatment Goals Patient/Caregiver Goals Liz's goals include improving strength of her core muscles and prevention of further LBP PT-OP-C Subjective Start: 06/14/20 08:56 Freq: Status: Active Protocol: Document 07/26/20 17:10 [facility] (Rec: 07/26/20 17:13 [facility] [email or web address]) OP-PT Subjective Patient Comments Patient Comments Liz continues to work on her exercises at home. She is experiencing some thoracic discomfort this week PT-OP-F Manual Assessment Start: 06/14/20 08:56 Freq: Status: Active Protocol: Document 06/14/20 12:32 [facility] (Rec: 06/19/20 12:40 [facility] [email or web address]) Manual Assessments Soft Tissue Assessment Soft Tissue Mobility Assessment Diastasis evaluation shows 1-2 finger width seperation proximal to umbilicus, 3 finger width just distal to umbilicus There is iliopsoas tightness and decreased Hip extension L> R lumbar paraspinal guarding Joint Mobility Assessment Joint Mobility Assessment hypermobility of the SI joing with + ASLR B PT-OP-J Posture/Palpation/Skin Start: 06/14/20 08:56 Freq: Status: Active Protocol: Document 06/14/20 12:32 [facility] (Rec: 06/19/20 12:40 [facility] [email or web address]) Palpation Assessment Location lumbar paraspinals Palpation Location lumbar paraspinals Palpation Findings Soft Tissue Tightness,Spasm, Muscle Guarding PT-OP-K Range of Motion Start: 06/14/20 08:56 Freq: Status: Active Protocol: Document 06/14/20 12:32 [facility] (Rec: 06/19/20 12:40 [facility] [email or web address]) Lumbar Spine Range of Motion Lumbar Spine Active Testing Position Standing Flexion 50 ROM Limitations Soft Tissue Tightness Comments Decreased active ROM of lumbar flexion Hip Goniometric Range of Motion Hip ROM Limitations Hip ROM Limitations Soft Tissue Tightness Comments Iliopsoas tightness B L>R, difficult to lay legs flat in supine, PT-OP-M Strength Start: 06/14/20 08:56 Freq: Status: Active Protocol: Document 06/14/20 12:32 [facility] (Rec: 06/19/20 12:40 [facility] [email or web address]) Trunk Strength Trunk Manual Muscle Testing Testing Position Supine Flexion 2 Poor Core Stabilization Diastasis noted of the rectus abdominus without coning noted . Decreased transverse abdominal stabilization with + ASLR test B PT-OP-Q Treatments Start: 06/14/20 08:56 Freq: Status: Active Protocol: Document 08/02/20 09:13 [facility] (Rec: 08/02/20 09:28 [facility] [id number]) Therapeutic Exercises Supine Exercises TA with SLR Reps/Minutes x 10 reps crunches Reps/Minutes x 10 TA level 1 b Reps/Minutes x 5 each leg bridges with ball squeeze Reps/Minutes x 10 reps ITB stretch Supine Exercise Name ITB stretch iliopsoas stretch in ruma test position Reps/Minutes hold x 1 min each side TA facilitation with marches Reps/Minutes x 10 TA facilitation Reps/Minutes x2 Prone Exercises prone thoracic extension Prone Exercise Name prone thoracic extension Reps/Minutes x 10 Comments ADDED OPP ARMS OVER HEAD Sidelying Exercises clam shells Sidelying Exercise Name Clam shells Reps/Minutes x 15 reps Standing Exercises standing squats, lunges, single leg squats Comments cued pt to engage the TA on return to stand Other Exercises pigeon pose Other Exercise Name pigeon pose Reps/Minutes 1 xm each leg x 1 min each plank pose Other Exercise Name plank pose supine 1/2 foam roll stretch Other Exercise Name 1/2 foam roll stretch Reps/Minutes 4 min TA with opp leg lifts Reps/Minutes x 10 reps quadruped thoracic rotation Reps/Minutes x 5 reps each side quadruped side bends Other Exercise Name quadruped sidebends Reps/Minutes x 5 each fredo pose Other Exercise Name fredo pose Reps/Minutes hold 30 sec to 1 minute Comments left side of lumbar spine paraspinals tight/guarded quadruped TA facilitation Reps/Minutes 10 reps x 10 second hold time ( pt to work up to 10 second hold time) quadruped cat cow Reps/Minutes x 10 reps Manual Therapy Treatment Manual Techniques 1 Type manual release of the left quadricep and iliopsoas manual iliopsoas release Type manual iliopsoas release Body Position Sidelying, and supine Comments left side of the ilipsoas improving flexibility and not as tight as it had been. PT-OP-T Assessment and Plan Start: 06/14/20 08:56 Freq: Status: Active Protocol: Document 08/02/20 12:35 [facility] (Rec: 08/02/20 12:37 [facility] [id number]) Physical Therapy Assessment Assessment Summary Assessment Liz has shown really good overall progress with core stabiliity post . She does still have some tightness in her hips left greater than right. She has been given exercises to continue with at home. Liz feels independent with her HEP and will be discharged from PT today Physical Therapy Plan Discharge Physical Therapy Discharge Reasons Goals Met Discharge Comments pt has progressed well with PT , she will continue to work on her hip stretches and low back stretches for home
--- NOTE | 2020-09-14 12:15 | PT.OPDS ---
Current Diagnoses Low back pain (08/02/20) Separation of muscle (nontraumatic), other site (08/02/20) Muscle weakness (generalized) (08/02/20) Visit Care Team Role Provider Type Staci Rodriguez MD Attending Provider Physician Family Provider Primary Care Provider Referring Provider Specialty: Family Practice Address: [address] [place] [address], [facility] Email: [email or web address] Visit Number Visit Number 8 Discharge Summary PT-OP-B Current Condition Start: 06/14/20 08:56 Freq: Status: Active Protocol: Document 06/14/20 09:55 [facility] (Rec: 06/14/20 10:04 [facility] [id number]) Current Condition History of Current Condition Onset Date With Current Complaints weak core muscles, diastasis History of Current Condition Liz is a 29 year old female 3 months post with her first baby. Her baby was 9.5 # at 41 weeks and she had a vaginal . Before she was she had hip and back pain, has a history of left sided hip pain. She points to pain in the front of her pelvis on the right. SHe does get some back pain when holding her baby. She will be 15 weeks tomorrow and is around 13 pounds now. She notes she did see some coning of her abdomen during . Low back pain and she has dealt with that for a long time. She mountain bikes and skis and yoga. She did cross fit for a long time too and that is when she had a lot of back pain. Treatment Goals Patient/Caregiver Goals Liz's goals include improving strength of her core muscles and prevention of further LBP PT-OP-C Subjective Start: 06/14/20 08:56 Freq: Status: Active Protocol: Document 07/26/20 17:10 [facility] (Rec: 07/26/20 17:13 [facility] [email or web address]) OP-PT Subjective Patient Comments Patient Comments Liz continues to work on her exercises at home. She is experiencing some thoracic discomfort this week PT-OP-F Manual Assessment Start: 06/14/20 08:56 Freq: Status: Active Protocol: Document 06/14/20 12:32 [facility] (Rec: 06/19/20 12:40 [facility] [email or web address]) Manual Assessments Soft Tissue Assessment Soft Tissue Mobility Assessment Diastasis evaluation shows 1-2 finger width seperation proximal to umbilicus, 3 finger width just distal to umbilicus There is iliopsoas tightness and decreased Hip extension L> R lumbar paraspinal guarding Joint Mobility Assessment Joint Mobility Assessment hypermobility of the SI joing with + ASLR B PT-OP-J Posture/Palpation/Skin Start: 06/14/20 08:56 Freq: Status: Active Protocol: Document 06/14/20 12:32 [facility] (Rec: 06/19/20 12:40 [facility] [email or web address]) Palpation Assessment Location lumbar paraspinals Palpation Location lumbar paraspinals Palpation Findings Soft Tissue Tightness,Spasm, Muscle Guarding PT-OP-K Range of Motion Start: 06/14/20 08:56 Freq: Status: Active Protocol: Document 06/14/20 12:32 [facility] (Rec: 06/19/20 12:40 [facility] [email or web address]) Lumbar Spine Range of Motion Lumbar Spine Active Testing Position Standing Flexion 50 ROM Limitations Soft Tissue Tightness Comments Decreased active ROM of lumbar flexion Hip Goniometric Range of Motion Hip ROM Limitations Hip ROM Limitations Soft Tissue Tightness Comments Iliopsoas tightness B L>R, difficult to lay legs flat in supine, PT-OP-M Strength Start: 06/14/20 08:56 Freq: Status: Active Protocol: Document 06/14/20 12:32 [facility] (Rec: 06/19/20 12:40 [facility] [email or web address]) Trunk Strength Trunk Manual Muscle Testing Testing Position Supine Flexion 2 Poor Core Stabilization Diastasis noted of the rectus abdominus without coning noted . Decreased transverse abdominal stabilization with + ASLR test B PT-OP-T Assessment and Plan Start: 06/14/20 08:56 Freq: Status: Active Protocol: Document 08/02/20 12:35 [facility] (Rec: 08/02/20 12:37 [email or web address] [id number]) Physical Therapy Assessment Assessment Summary Assessment Liz has shown really good overall progress with core stabiliity post . She does still have some tightness in her hips left greater than right. She has been given exercises to continue with at home. Liz feels independent with her HEP and will be discharged from PT today Physical Therapy Plan Discharge Physical Therapy Discharge Reasons Goals Met Discharge Comments pt has progressed well with PT , she will continue to work on her hip stretches and low back stretches for home
== END 2020-09-16 09:13 ==
LOC: PHYS 09:00
PROVIDERS: Family Provider Family Medicine; PCP Family Medicine; Referring Provider Family Medicine; Visit Provider Family Medicine
DX: M62.08 Separation of muscle (nontraumatic), other site (principal); M54.5 Low back pain; M62.81 Muscle weakness (generalized)
CPT/HCPCS: 97110; 97140; 97161

== ENCOUNTER → 2021-05-26 14:01 | Outpatient (CLI) | payer OTHER, SELFPAY ==
[2020-05-19 16:21] VITALS: BMI 20.1
[2021-05-26 14:38] LABS: C-Reactive Protein Quant < 0.5 mg/dL (<1.0); Calcium 9.3 mg/dL (8.4-10.2); Erythrocyte Sedimentation Rate 16 MM/HR (0-20); HEMOLYSIS < 15 (0-50); Potassium 4.1 mmol/L (3.4-5.1)
[2021-05-26 14:52] LABS: Free T4, Direct Thyroxine 0.89 ng/dL (0.78-2.19)
[2021-05-26 15:23] LABS: Vitamin B12 932 pg/mL (239-931)
[2021-05-26 18:16] LABS: Folate 19.3 ng/mL (2.76-20.0)
== END ==
PROVIDERS: PCP Family Medicine; Referring Provider Family Medicine; Visit Provider Family Medicine
DX: R20.2 Paresthesia of skin (principal)
CPT/HCPCS: 36415; 82310; 82607; 82746; 84132; 84439; 84443; 85651; 86140

== ENCOUNTER 2021-08-27 10:50 | Emergency (ER) | payer OTHER, SELFPAY ==
[2020-05-19 16:21] VITALS: BMI 20.1
--- NOTE | 2021-08-27 11:04 | ED.CONSULT ---
ED Provider Consult/Code Note General Reason for Admission: broken tailbone, fall
[2021-08-27 11:07] VITALS: O2SAT 95
[2021-08-27 11:08] VITALS: BP 95/54; PULSE 76; O2SAT 100
--- NOTE | 2021-08-27 11:13 | DI.RAD.S_ITS ---
PROCEDURE: XR PELVIS 1-2V INDICATIONS: fall, coccyx, lightheaded TECHNIQUE: AP view(s) of the pelvis acquired. COMPARISON: [facility], CR, HIP 2V LEFT, 11/18/2014, 14:30. FINDINGS: Bones: No fractures or dislocations. No suspicious bony lesions. Soft tissues: Visualized bowel gas pattern is normal. Calcifications overlie the pelvis, most consistent with phleboliths. IMPRESSION: No acute osseous abnormality. Dictated by: Isaiah Waldron M.D. on 08/27/2021 at 11:49 Approved by: Isaiah Waldron M.D. on 08/27/2021 at 11:51
--- NOTE | 2021-08-27 11:13 | DI.RAD.S_ITS ---
PROCEDURE: XR SACRUM COCCYX MIN 2V INDICATIONS: fall, coccyx pain, lightheaded. TECHNIQUE: 3 views of the sacrum and coccyx acquired. COMPARISON: None. FINDINGS: Bones: No fractures or dislocations. No suspicious bony lesions. Soft tissues: Visualized bowel gas pattern is normal. No suspicious soft tissue densities. IMPRESSION: No acute osseous abnormality. Dictated by: Isaiah Waldron M.D. on 08/27/2021 at 11:47 Approved by: Isaiah Waldron M.D. on 08/27/2021 at 11:49
--- NOTE | 2021-08-27 11:15 | ED.FALL ---
HPI - Fall General Chief Complaint: Extremity Injury, Lower Stated Complaint: broken tailbone, fall Time Seen by Provider: 08/27/21 10:58 Source: patient Mode of arrival: Ambulatory Limitations: no limitations History of Present Illness HPI Narrative: This is a [age]-year-old female comes emergency department after having a fall on her buttocks. Patient states she was stepping over a baby gate, her feet got tangled up and she fell directly on her buttocks. She thinks she might have landed on a piece of the gait or plastic. She does not know if there is any laceration or injury but she had immediate pain was very nauseated. She has continued to have pain in her buttock region. It is uncomfortable when she walks, tries to sit her put direct pressure on that area. She has felt lightheaded. She has not passed out but felt like she might. She had 1 episode of vomiting after arrival to the ER. Patient notes she did have 1 episode of diarrhea at home but did notice any black or blood in her stool. She denies any other injuries. She did not hit her head. She denies any neck or or back pain. No numbness, tingling or weakness down her extremities. No loss of bowel or bladder control. Patient is on levothyroxine, vitamin-D and some supplements. She denies any major surgeries besides a D&C after a incomplete miscarriage. She does have an [id number]. She is not . She states she has gotten lightheaded or had nausea or vomiting with delivery but does not typically happen to her. Patient defers anything stronger than ibuprofen for pain at this time. Related Data Home Medications Medication Instructions Recorded Confirmed levothyroxine 75 mcg tablet 75 mcg PO DAILY 03/09/19 03/01/20 vitamin with calcium 1 tab PO DAILY 03/09/19 03/01/20 no.72-iron 27 mg-folic acid 1 mg tablet cholecalciferol (vitamin D3) 25 1,000 unit PO DAILY 03/15/19 03/01/20 mcg (1,000 unit) capsule (Vitamin D3) valacyclovir 500 mg tablet 500 mg PO DAILY 03/15/19 03/01/20 Previous Rx's Medication Instructions Recorded docusate sodium 100 mg capsule 100 mg PO BID #60 cap 03/04/20 (DOK) ibuprofen 600 mg tablet 600 mg PO Q6HR PRN #60 tab 03/04/20 Allergies Allergy/AdvReac Type Severity Reaction Status Date / Time No Known Drug Allergies Allergy Verified 08/27/21 11:23 Review of Systems Review of Systems ROS Unobtainable: All systems reviewed & are unremarkable except as noted in HPI and below Patient History Medical History (Updated 08/27/21 @ 12:16 by Anna Tabares DO) Hypothyroidism Social History household members: spouse Smoking Status: Never smoker alcohol intake: former Smoking Status: Never smoker alcohol intake frequency: a few times a month Substance Use Type: does not use Exam Narrative Exam Narrative: GEN: well nourished, well appearing female, alert and oriented x 3, patient appears to be in mild distress. HEENT: Atraumatic, pupils are equal round reactive to light, extraocular movements are intact, nares are clear. HEART: Regular rate and rhythm without murmur, clicks, rubs. LUNGS:Lungs clear to auscultation, no wheezes, rales, crackles, chest moves symmetrically ABD:bowel sounds normal, soft, non-tender, no guarding, rebound, rigidity, no masses noted, no hepatosplenomegaly :No CVA tenderness BACK: No cervical, thoracic or lumbar vertebral point tenderness. Patient has normal range of motion. Pelvic rock is negative. Patient does have tenderness over the buttocks and coccyx region. No obvious ecchymosis, laceration or skin changes. Exam is deferred. Muscle strength is 5/5 in lower extremities. Normal sensation. MSCL: Non-tender, muscles strength 5/5 upper and lower extremities, full range of motion NEURO:CN 2-12 intact, sensation normal Initial Vital Signs Initial Vital Signs: Vital Signs Pulse Oximetry 95 08/27/21 11:07 Scores GCS Carrillo coma scale eye opening: Spontaneous [place]ron coma scale verbal response: Orientated Carrillo coma scale motor response: Obey commands Carrillo coma scale total score: 15 Course Orders Ordered: ED Orders 08/27/21 11:00 Urine Microscopic Stat 08/27/21 11:13 XR pelvis 1-2V Stat XR sacrum coccyx min 2V Stat Discontinued Medications Ibuprofen (Ibuprofen 400 Mg Tablet) 800 mg PO NOW ONE Stop: 08/27/21 11:14 Last Admin: 08/27/21 11:46 Dose: 800 mg Documented by: ANTONELLA Ondansetron HCl (Ondansetron 4 Mg Odt) 4 mg SL NOW ONE Stop: 08/27/21 11:14 Last Admin: 08/27/21 11:46 Dose: 4 mg Documented by: ANTONELLA Reevaluation(s) Reevaluation #1: Patient is feeling much better. She was able to ambulate although still uncomfortable she did not feel lightheaded. We reviewed her imaging. Plan for donut pillow, pain control and follow-up with PCP having persistent symptoms and reasons to return emergently. Patient feels comfortable with this plan. Time: 12:43 Vital Signs Vital signs: Vital Signs - 8 hr 08/27/21 11:07 08/27/21 11:08 08/27/21 11:23 Temperature 98.1 F Pulse Rate 76 Respiratory Rate Blood Pressure 95/54 L Pulse Oximetry 95 100 08/27/21 11:30 08/27/21 11:45 08/27/21 12:00 Temperature 98.1 F Pulse Rate 76 71 77 Respiratory Rate 18 Blood Pressure 90/55 L 95/54 L 97/57 L Pulse Oximetry 100 100 100 MDM - Fall Lab Data Labs: Lab Results 08/27/21 Range/Units 11:00 Urine RBC 1-5/hpf (0-5/HPF) Urine WBC 10-30/hpf H (0-5/HPF) Ur Squamous Epith Cells 10-30 /hpf H (0-5/HPF) Urine Bacteria Many (>30) H (None) Ur Culture Indicated? Culture not indicate Micro UA Comment ... Point of Care Testing Test Results Negative Urine Dip Bedside Urine Glucose Negative Bedside Urine Bilirubin - Negative Bedside Urine Ketone - Negative Urine Specific [place] 1.015 Bedside Urine Occult Blood +/- Bedside Urine pH 8 Bedside Urine Protein + 30 Bedside Urine Urobilinogen - Negative Bedside Urine Nitrite - Negative Bedside Urine Leukocytes + 70 Esterase Imaging Data pelvic xray: Radiologist's Impression: XRay Report Signed Patient: Liz Godoy MR#: [id number] : 1990 Acct:[id number] Age/Sex: 31 / F Date of Service: 08/27/21 Loc: ED Accession Number: [id number] ?? Procedure: XR pelvis 1-2V Ordering Provider: Anna Tabares D.O. PROCEDURE:? XR PELVIS 1-2V ? INDICATIONS:? fall, coccyx, lightheaded ? TECHNIQUE:? AP view(s) of the pelvis acquired.? ? COMPARISON:? [facility], CR, HIP 2V LEFT, 11/18/2014, 14:30. ? FINDINGS:? ? Bones:? No fractures or dislocations.? No suspicious bony lesions.? ? Soft tissues:? Visualized bowel gas pattern is normal.? Calcifications overlie the pelvis, most consistent with phleboliths.? ? IMPRESSION:? No acute osseous abnormality. ? ? Dictated by: Isaiah Waldron M.D. on 08/27/2021 at 11:49 ? ? Approved by: Isaiah Waldron M.D. on 08/27/2021 at 11:51?? sacrum xray: Radiologist's Impression: [place] [address] XRay Report Signed Patient: Liz Godoy MR#: [id number] : 1990 Acct:[id number] Age/Sex: 31 / F Date of Service: 08/27/21 Loc: ED Accession Number: [id number] ?? Procedure: XR sacrum coccyx min 2V Ordering Provider: Anna Tabares D.O. PROCEDURE:? XR SACRUM COCCYX MIN 2V ? INDICATIONS:? fall, coccyx pain, lightheaded. ? TECHNIQUE:? 3 views of the sacrum and coccyx acquired.? ? COMPARISON:? None. ? FINDINGS:? ? Bones:? No fractures or dislocations.? No suspicious bony lesions.? ? Soft tissues:? Visualized bowel gas pattern is normal.? No suspicious soft tissue densities.? ? IMPRESSION:? No acute osseous abnormality. ? ? Dictated by: Isaiah Waldron M.D. on 08/27/2021 at 11:47 ? ? Approved by: Isaiah Waldron M.D. on 08/27/2021 at 11:49?? MDM Narrative Medical decision making narrative: This is a 31-year-old female with a ground level fall on her buttocks with pain at the coccyx region. Pelvic x-ray and sacrum/coccyx xray included these are negative. Patient feels more comfortable although not asymptomatic with ibuprofen and Zofran. She is able to ambulate and no longer feels lightheaded. Discussed with patient plan for conservative measures. We did discuss that she should return for re-evaluation if any worsening symptoms. Discharge Plan Departure Patient Disposition: Home Clinical Impression: Contusion of buttock, Fall Instructions: DI for Coccyx Fracture Activity Restrictions/Additional Instructions: Your x-ray imaging today of her pelvis and sacrum/coccyx is negative but I would recommend following the same treatments. You may use Tylenol up to a 1000 mg and/or ibuprofen up to 600 mg every 6 hours. A doughnut pillow or soft pillows underneath your buttocks may be helpful when sitting or resting and keeping your weight off that area. Please return for rapidly worsening symptoms, new weakness numbness or tingling in your extremities, loss of bowel or bladder control, passing out, persistent vomiting, new chest pain or shortness of breath or other new or concerning symptoms. Prescriptions: No Action levothyroxine 75 mcg tablet 75 mcg PO DAILY 0RF Label Comments: take 1 tablet by mouth once daily at 6am PNV,calcium 44-[id number]-[id number] acid 27 mg iron- 1 mg tablet 1 tab PO DAILY 0RF Label Comments: Take one by mouth every day. valacyclovir 500 mg Tablet 500 mg PO DAILY 0RF cholecalciferol (vitamin D3) [Vitamin D3] 1,000 unit Capsule 1,000 unit PO DAILY 0RF docusate sodium [DOK] 100 mg Capsule 100 mg PO BID Qty: 60 0RF ibuprofen 600 mg Tablet 600 mg PO Q6HR PRN (Reason: Pain, Mild (1-3)) Qty: 60 0RF Referrals: Staci Rodriguez MD [Primary Care Provider] -
[2021-08-27 11:23] VITALS: TEMP 36.7
[2021-08-27 11:30] VITALS: BP 90/55; PULSE 76; O2SAT 100
[2021-08-27 11:45] VITALS: BP 95/54; PULSE 71; RESP 18; TEMP 36.7; O2SAT 100; BMI 21.9
[2021-08-27] MEDS: ONDANSETRON 4 MG ODT SL (11:46)
[2021-08-27] MEDS: IBUPROFEN 400 MG TABLET 800 MG PO (11:46)
[2021-08-27 11:49] LABS: Bacteria Urine Many (>30); RBC Urine 1-5/HPF (0-5/HPF); Squamous Epithelial Cell Urine 10-30 /HPF (0-5/HPF); WBC Urine 10-30/HPF (0-5/HPF)
[2021-08-27 12:00] VITALS: BP 97/57; PULSE 77; O2SAT 100
--- NOTE | 2021-08-27 12:40 | PC.NURSE ---
Pt ambulated with [employer], reported discomfort, denies dizziness.
== END 2021-08-27 12:55 | disposition home or self-care (01) ==
PROVIDERS: Emergency Provider Emergency Medicine; PCP Family Medicine
DX: S30.0XXA Contusion of lower back and pelvis, initial encounter (principal); R42 Dizziness and giddiness; R11.2 Nausea with vomiting, unspecified; W01.198A Fall on same level from slipping, tripping and stumbling with subsequent striking against other object, initial encounter
CPT/HCPCS: 72170; 72220; 81003; 81015; 81025; 99284